=== PATIENT | female | born 1945 | race Caucasian/White ===

== ENCOUNTER 2017-08-25 09:00 | Outpatient (RCR) | payer MEDICARE, SELFPAY | END 2017-08-25 23:59 | LOC: PT 09:00 | PROVIDERS: Visit Provider Internal Medicine | DX: M54.2 Cervicalgia (principal); M25.511 Pain in right shoulder | CPT/HCPCS: G8984; G8985; G8986; 97010; 97035; 97110; 97140; 97161 ==

== ENCOUNTER 2017-09-02 10:00 | Outpatient (RCR) | payer MEDICARE, SELFPAY | END 2017-09-02 23:59 | LOC: PT 10:00 | PROVIDERS: Family Provider Internal Medicine; PCP Internal Medicine; Visit Provider Internal Medicine | DX: M54.2 Cervicalgia (principal); M25.511 Pain in right shoulder | CPT/HCPCS: 97010; 97035; 97110; 97140 ==

== ENCOUNTER → 2018-06-06 15:20 | Outpatient (CLI) | payer MEDICARE, SELFPAY ==
--- NOTE | 2018-06-06 15:22 | MM_ITS ---
MM Dig mamm BI DX w/CAD INDICATION: Bilateral breast pain ORDERING PHYSICIAN: Dom Gilman MD PATIENT AGE: 72 years COMPARISON: 06/30/2017 TECHNIQUE: Standard images are performed. The patient has old films which were not available at the time of review of the mammogram. Old films are made available on 06/14/2018. FINDINGS: There is dense fibroglandular tissue which decreases the sensitivity of mammography. There are bilateral benign-appearing calcifications. A cluster of benign-appearing nodules is noted within the upper outer aspect of the right breast. No malignant appearing mass or malignant appearing microcalcification is evident. Scattered areas of asymmetric density are noted but not significant changed consistent with asymmetric fibroglandular tissue. IMPRESSION: Benign findings, no evidence of malignancy BI-RADS Category: 2 Benign Finding(s) RECOMMENDED FOLLOW-UP: 1YR - 1 YEAR FOLLOW-UP The mammogram has an unremarkable appearance. However, would consider bilateral breast ultrasound in this patient with breast pain and dense breast tissue. (A letter has been sent to the patient regarding results of the study.)
== END ==
PROVIDERS: Family Provider Internal Medicine; PCP Internal Medicine; Visit Provider Obstetrics & Gynecology
DX: N64.4 Mastodynia (principal)
CPT/HCPCS: 77066

== ENCOUNTER → 2018-06-20 09:30 | Outpatient (CLI) | payer MEDICARE, SELFPAY ==
--- NOTE | 2018-06-20 09:31 | US_ITS ---
US breast RT complete, US breast LT complete Ordering Physician: Dom Gilman MD Patient Age: 72 years: Female HISTORY: ITS.REASON: BREAST PAIN bilateral TECHNIQUE: Ultrasound right and left breast including axillary survey cz US breast RT complete, US breast LT complete COMPARISON: Previous outside mammogram from [facility] Jun 2017; Also [facility] from June [facility], 2018 RIGHT BREAST ULTRASOUND: No areas of concern Moderate Dense breast tissue throughout for age. No cyst nor mass evident. Scattered small benign axillary lymph nodes observed. Largest 1.2 cm. LEFT BREAST ULTRASOUND: No areas of concern Heterogeneous dense breast. No cyst or solid nodule evident.. Axillary survey with no significant findings. Benign-appearing nodes largest 1.25 cm length IMPRESSION: . Today's ultrasound of right and left breast performed and show no areas of concern. No solid mass nor cyst. BI-RADS Category: 1 Negative RECOMMENDED FOLLOW-UP: 1YR - 1 YEAR FOLLOW-UP (A letter has been sent to the patient regarding results of the study.)
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
== END ==
PROVIDERS: Family Provider Internal Medicine; PCP Internal Medicine; Visit Provider Obstetrics & Gynecology
DX: N64.4 Mastodynia (principal)
CPT/HCPCS: 76641

== ENCOUNTER 2019-12-31 13:13 | Emergency (ER) | payer OTHER, SELFPAY ==
[2019-12-31 13:14] VITALS: BP 146/105; PULSE 108; RESP 18; TEMP 37.1; O2SAT 96; BMI 61.6
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
[2019-12-31 15:34] VITALS: BP 115/74; PULSE 78; RESP 16; TEMP 36.6; O2SAT 98
== END 2019-12-31 15:35 | disposition home or self-care (01) ==
PROVIDERS: Emergency Provider Family Medicine; PCP Emergency Medicine
DX: S60.211A Contusion of right wrist, initial encounter (principal); V43.52XA Car driver injured in collision with other type car in traffic accident, initial encounter; Y92.414 Local residential or business street as the place of occurrence of the external cause
CPT/HCPCS: 29125; 73110; 73130; 99283

== ENCOUNTER → 2020-01-18 10:10 | Outpatient (CLI) | payer MEDICARE, SELFPAY ==
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
== END ==
PROVIDERS: PCP Internal Medicine; Visit Provider Obstetrics & Gynecology
DX: Z12.31 Encounter for screening mammogram for malignant neoplasm of breast (principal)
CPT/HCPCS: 77063; 77067

== ENCOUNTER 2020-10-13 12:40 | Emergency (ER) | payer MEDICARE, SELFPAY ==
[2020-10-13 12:40] VITALS: BP 116/78; BP 135/102; PULSE 90; PULSE 97; RESP 18; TEMP 36.8; O2SAT 97; O2SAT 98; BMI 26.5
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
[2020-10-13 13:18] VITALS: BP 135/78; PULSE 75; O2SAT 95
[2020-10-13 13:30] VITALS: BP 142/91; PULSE 83; RESP 18; O2SAT 97
--- NOTE | 2020-10-13 14:06 | CT_ITS ---
PROCEDURE: CT CERVICAL SPINE WO CON CLINICAL INDICATION: fall from height History of mandible resection current patient unable to straighten hands for imaging COMPARISON: No exams were available for comparison TECHNIQUE: Axial images obtained with sagittal and coronal reformats. All CT scans at the facility use one or more dose reduction, viz: automated exposure control, ma/kV adjustment per patient size (including targeted exams where dose is matched to indication, i.e. head), or iterative reconstruction technique. Axial spiral CT scanning performed of the cervical spine beginning at the base of the skull and continuing to the upper T-spine. 3-D multiplanar reconstruction with 3-D manipulation of volumetric data set in image rendering was completed by the radiologist and/or technologist with the supervision of the radiologist on independent workstation. FINDINGS: There is diffuse osteopenia. There is no acute fracture. There are soft tissue changes from prior mandibular surgery and motion and artifact which does obscure soft tissue detail in the pharynx, hypopharynx and epiglottic fold regions these cannot be therefore assessed this study. There is scattered fluid in the left mastoid air cells suggesting mild left mastoiditis. Postsurgical changes are present in the left mandible. There is exaggerated kyphosis. There is normal lordosis of the cervical spine. There is minimal grade 1 retrolisthesis of C3 on C4. There are scattered degenerative changes. There is no spinal canal narrowing. There is narrowing of the left see 3 4 neural foramen and possibly the left C4-5 neural foramen. There is atherosclerotic calcification at the right greater than left carotid bifurcation. The lung apices are clear. IMPRESSION: Cervical spine intact with no fracture nor significant subluxation. Dictated by: Alla Merlos MD 10/13/2020 15:13 Alla Merlos MD in [place] 10/13/2020 15:13
--- NOTE | 2020-10-13 14:24 | PC.NURSE ---
notified rad of CT scan order, spoke with derrick
[2020-10-13 15:02] VITALS: BP 124/93; PULSE 85; RESP 18; O2SAT 95
[2020-10-13 15:30] VITALS: BP 124/93; PULSE 91; RESP 17; TEMP 36.7; O2SAT 98
--- NOTE | 2020-10-13 16:01 | PC.NURSE ---
Contacted pt brother to orange picker pt
[2020-10-13 16:03] VITALS: BP 149/98; PULSE 83; RESP 17; TEMP 36.8; O2SAT 95
== END 2020-10-13 16:05 | disposition home or self-care (01) ==
PROVIDERS: Emergency Provider Family Medicine; PCP Emergency Medicine
DX: S16.1XXA Strain of muscle, fascia and tendon at neck level, initial encounter (principal); V58.4XXA Person boarding or alighting a pick-up truck or van injured in noncollision transport accident, initial encounter; Y92.481 Parking lot as the place of occurrence of the external cause
CPT/HCPCS: 72125; 73000; 73030; 99283

== ENCOUNTER → 2021-03-17 14:47 | Outpatient (CLI) | payer MEDICARE, SELFPAY ==
--- NOTE | 2021-03-17 14:50 | MM_ITS ---
PROCEDURE: MM DIG SCREENING MAMM BI W/CAD Digital Breast Tomosynthesis Included CLINICAL INDICATION: SCREENING There is a history of breast cancer in the patient's sister diagnosed at age 50. COMPARISON: MG [facility] S[facility] MAMMO W/CAD BILAT from 06/30/2017 MG [facility] MM Dig mamm BI DX w/CAD from 06/06/2018 MG MM DIG SCREENING MAMM BI W/CAD from 01/18/2020 TECHNIQUE: Standard CC and MLO images and 3D Tomosynthesis was obtained. R2 CAD reviewed. FINDINGS: Moderate diffuse somewhat heterogenic fibroglandular densities are seen in the central portions of both breast findings are bilateral symmetrical. There are few scattered benign-appearing microcalcifications in both breast. CAD markings were reviewed and appear to be benign. There is a stable benign appearing nodular density upper-outer quadrant right breast. There is no suspicious lesion and no suspicious microcalcifications. IMPRESSION: Moderate heterogenic breast parenchyma with no suspicious lesions seen BI-RAD Category: 2 Benign Finding(s) FOLLOW-UP: 1YR 1 Year Follow-up (A letter has been sent to the patient regarding results of the study.) Dictated by: Dr. Dami Peres MD 03/18/2021 14:37 Dr. Dami Peres MD in [place] 03/18/2021 14:37
== END ==
PROVIDERS: PCP Internal Medicine; Visit Provider Internal Medicine
DX: Z12.31 Encounter for screening mammogram for malignant neoplasm of breast (principal)
CPT/HCPCS: 77063; 77067

== ENCOUNTER 2022-07-25 19:06 | Emergency (ER) | payer MEDICARE, SELFPAY ==
[2022-07-25 19:06] VITALS: BP 146/83; PULSE 80; RESP 18; TEMP 37.1; O2SAT 100; BMI 23.7
[2022-07-25 20:01] VITALS: BP 146/83; PULSE 79; O2SAT 97
--- NOTE | 2022-07-25 20:05 | XR_ITS ---
PROCEDURE INFORMATION: Exam: XR Left Knee Exam date and time: 07/25/2022 9:27 PM Age: 76 years old Clinical indication: Injury or trauma; Fall; Blunt trauma; Knee; Left TECHNIQUE: Imaging protocol: Radiologic exam of the Left knee. Views: 3 views. COMPARISON: No relevant prior studies available. FINDINGS: Bones/joints: Old healed fracture proximal diaphysis of the fibula. Small effusion without visualized acute fracture or subluxation. Mild osteoarthritis. Osteopenia. Soft tissues: Normal. Vasculature: Atherosclerosis. IMPRESSION: Small effusion without visualized acute fracture or subluxation.
--- NOTE | 2022-07-25 20:05 | XR_ITS ---
PROCEDURE INFORMATION: Exam: XR Right Elbow Exam date and time: 07/25/2022 9:27 PM Age: 76 years old Clinical indication: Injury or trauma; Fall; Blunt trauma (contusions or hematomas); Elbow; Right TECHNIQUE: Imaging protocol: Radiologic exam of the Right elbow. Views: 3 or more views. COMPARISON: CR XR SHOULDER RT MIN 2V 10/13/2020 1:23 PM FINDINGS: Bones/joints: Acute and comminuted transcondylar fractures of the distal humerus with 11 mm medial offset. Osteopenia and osteoarthritis. Soft tissues: Effusion. Soft tissue swelling. IMPRESSION: Acute and comminuted transcondylar fractures of the distal humerus with 11 mm medial offset.
--- NOTE | 2022-07-25 20:05 | XR_ITS ---
PROCEDURE INFORMATION: Exam: XR Right Knee Exam date and time: 07/25/2022 9:27 PM Age: 76 years old Clinical indication: Injury or trauma; Fall; Blunt trauma; Knee; Right TECHNIQUE: Imaging protocol: Radiologic exam of the Right knee. Views: 3 views. COMPARISON: No relevant prior studies available. FINDINGS: Bones/joints: Moderate osteoarthritis without fracture, subluxation or effusion. Soft tissues: Normal. Vasculature: Atherosclerosis. IMPRESSION: Moderate osteoarthritis without fracture, subluxation or effusion.
--- NOTE | 2022-07-25 20:05 | XR_ITS ---
PROCEDURE INFORMATION: Exam: XR Chest Exam date and time: 07/25/2022 9:27 PM Age: 76 years old Clinical indication: Injury or trauma; Fall; Blunt trauma (contusions or hematomas) TECHNIQUE: Imaging protocol: Radiologic exam of the chest. Views: 1 view. COMPARISON: CT CERVICAL SPINE WO CON 10/13/2020 2:38 PM FINDINGS: Lungs: No lobar consolidation, pleural effusion or pulmonary edema. Pleural spaces: No pneumothorax. Heart/Mediastinum: Unremarkable. No cardiomegaly. Bones/joints: Chronic deformity and advanced degenerative change right shoulder with moderate degenerative change elsewhere. No acute fracture line is seen. IMPRESSION: 1. No lobar consolidation, pleural effusion or pulmonary edema. 2. No pneumothorax. Chronic appearing fracture anterolateral right 5th rib. No pneumothorax.
--- NOTE | 2022-07-25 20:11 | XR_ITS ---
PROCEDURE INFORMATION: Exam: XR Pelvis Exam date and time: 07/25/2022 9:27 PM Age: 76 years old Clinical indication: Injury or trauma; Fall; Blunt trauma (contusions or hematomas); Bilateral; Pelvic region TECHNIQUE: Imaging protocol: Radiologic exam of the pelvis. Views: 1 or 2 view. COMPARISON: No relevant prior studies available. FINDINGS: Bones/joints: Osteopenia. Mild degenerative changes with no fracture or focal bony lesion seen. Nondisplaced fractures in osteopenic patients can be initially occult on xray. Follow up as clinically indicated. Soft tissues: Unremarkable. IMPRESSION: Mild degenerative changes with no fracture or focal bony lesion seen. Nondisplaced fractures in osteopenic patients can be initially occult on xray. Follow up as clinically indicated.
--- NOTE | 2022-07-25 20:15 | XR_ITS ---
PROCEDURE INFORMATION: Exam: XR Right Shoulder Exam date and time: 07/25/2022 9:27 PM Age: 76 years old Clinical indication: Injury or trauma; Fall; Blunt trauma (contusions or hematomas); Shoulder; Right TECHNIQUE: Imaging protocol: Radiologic exam of the Right shoulder. Views: 2 or more views. COMPARISON: CR XR SHOULDER RT MIN 2V 10/13/2020 1:23 PM FINDINGS: Bones/joints: Advanced degenerative change right glenohumeral joint without acute fracture or dislocation. Soft tissues: Normal. IMPRESSION: Advanced degenerative change right glenohumeral joint without acute fracture or dislocation.
--- NOTE | 2022-07-25 20:16 | HMH.EDFALL ---
Discharge Plan Disposition Patient Disposition: Home, Self-Care Condition: Good Prescriptions Prescriptions: No Action olive leaf extract 250 mg capsule PO glucosamine sulfate 500 mg capsule 500 mg PO BID grape seed extract 50 mg capsule 150 mg PO DAILY omega-3 fatty acids 1,000 mg capsule 1,000 mg PO DAILY Fish, Flax andBorage Oil(Prim) 400-400-200 mg capsule PO vitamin [id number] B1 1,000 mcg-100 mg/mL injection solution 1,000-100 mg/mL solution IM enalapril maleate 5 mg tablet 5 mg PO DAILY Referrals Follow up/Referrals: Darrin Liang [Primary Care Provider] - See instructions Clinical Impressions Clinical Impression: Transcondylar fracture of distal end of right humerus, Fall, Closed rib fracture, Contusion of knee Instructions Patient Instructions: DI for Elbow Fracture Discharge ED Provider: Jose Ramon Pop Fall HPI General Chief Complaint: Fall Stated Complaint: fall Time Seen by Provider: 07/25/22 20:16 Mode of Arrival: EMS Source of Information: Patient, Relative and Medical Record Limitations: No Limitations Description of Symptoms (Recalled from ER Triage Doc. by RN): pt states that she fell today up a ramp her sock got stuck and then she fell on her knees her right arm went under her and chin then nose and face all hit . the pt states that she has pain along the left arm, rib cage, midsternal pain near the right side. the pt states she cracked both knees there is notible bruising bilateral knees pt also has a bruise on the lip History of Present Illness HPI Narrative: trip fall tonight with acute injury to rt elbow - no loc and no neck or head pain - MD complaint: fall Onset (ago): hour(s) Fall from: standing Fall witnessed: no Place fall occurred: home Loss of consciousness: none Prolonged down time: no Context: tripped/slipped Location of injury - extremities: Right: elbow and Bilateral: knee Severity: moderate Associated symptoms (after fall): denies Related Data Home Medications Medication Instructions Recorded Confirmed fish oil 400 mg-flaxseed 400 cap PO 06/05/18 12/23/21 mg-prim,blk prop and effects designer,borag oils 200 mg capsule (Fish, Flax and Borage Oil ([place])) glucosamine sulfate 500 mg capsule 500 mg PO BID 06/05/18 12/23/21 grape seed extract 50 mg capsule 150 mg PO DAILY 06/05/18 12/23/21 olive leaf extract 250 mg capsule mg PO 06/05/18 12/23/21 omega-3 fatty acids 1,000 mg 1,000 mg PO DAILY 06/05/18 12/23/21 capsule vitamin [id number] B1 1,000 ml IM 06/05/18 12/23/21 mcg-100 mg/mL injection solution enalapril maleate 5 mg tablet 5 mg PO DAILY 12/23/21 12/23/21 Allergies Allergy/AdvReac Type Severity Reaction Status Date / Time Iodinated Contrast Media Allergy Severe causes Verified 12/23/21 14:46 [Iodinated Contrast Media - blood Oral and] pressure to drop acetaminophen [From Lortab] Allergy Intermediate Verified 12/23/21 14:46 amoxicillin Allergy Intermediate vaginitis Verified 12/23/21 14:46 atropine [From Lomotil] Allergy Intermediate Verified 12/23/21 14:46 dabigatran etexilate Allergy Intermediate Verified 12/23/21 14:46 [From Pradaxa] digoxin [From Lanoxin] Allergy Intermediate pt. said Verified 12/23/21 14:46 it made her hands swell and unusual heart rate diphenoxylate [From Lomotil] Allergy Intermediate Verified 12/23/21 14:46 hydrocodone [From Lortab] Allergy Intermediate Verified 12/23/21 14:46 iodine Allergy Intermediate Verified 12/23/21 14:46 ketorolac [From Toradol] Allergy Intermediate Verified 12/23/21 14:46 pentazocine [From Talwin] Allergy Intermediate Verified 12/23/21 14:46 prednisone Allergy Intermediate Verified 12/23/21 14:46 thallium-201 Allergy Intermediate Verified 12/23/21 14:46 aspirin [From Magdy Aspirin] Allergy Mild hives,weakness,and Verified 12/23/21 14:46 stomach upset chlorothiazide [From Diuril] Vega
--- NOTE | 2022-07-25 20:18 | CT_ITS ---
PROCEDURE INFORMATION: Exam: CT Chest Without Contrast; Diagnostic Exam date and time: 07/25/2022 9:37 PM Age: 76 years old Clinical indication: Injury or trauma; Fall; Blunt trauma (contusions or hematomas) TECHNIQUE: Imaging protocol: Diagnostic computed tomography of the chest without contrast. Radiation optimization: All CT scans at this facility use at least one of these dose optimization techniques: automated exposure control; mA and/or kV adjustment per patient size (includes targeted exams where dose is matched to clinical indication); or iterative reconstruction. COMPARISON: CT CERVICAL SPINE WO CON 10/13/2020 2:38 PM FINDINGS: Lungs: Limited atelectasis and pleuroparenchymal scarring. Para valvular and coronary artery calcifications. Mildly ectatic thoracic aorta. Pleural spaces: No lobar consolidation, pleural effusion or pulmonary edema. Heart: See Lungs finding. Lymph nodes: Unremarkable. No enlarged lymph nodes. Vasculature: See Lungs finding. Gallbladder and bile ducts: Cholelithiasis. Kidneys and ureters: Tiny right renal stone. Bones/joints: Acute appearing minimally offset fracture laterally of the right 10th rib. No pneumothorax. Soft tissues: Unremarkable. Other findings: No other acute disease seen on nonenhanced study. As Above. IMPRESSION: 1. No lobar consolidation, pleural effusion or pulmonary edema. 2. Acute appearing minimally offset fracture laterally of the right 10th rib. No pneumothorax. 3. No other acute disease seen on nonenhanced study. As Above.
[2022-07-25 20:31] VITALS: BP 147/89; PULSE 78; O2SAT 98
[2022-07-25 22:00] VITALS: BP 134/90; PULSE 79; O2SAT 95
[2022-07-25 22:31] VITALS: BP 136/87; PULSE 80; O2SAT 97
--- NOTE | 2022-07-25 22:39 | PC.NURSE ---
Rechecked pt condition. No needs or complaints voiced.
--- NOTE | 2022-07-25 22:48 | PC.NURSE ---
Dr. Niels vanegas
--- NOTE | 2022-07-25 22:49 | PC.NURSE ---
Dr. Pop speaking with Dr. Bowser
[2022-07-25 23:36] VITALS: BP 136/85; PULSE 80; RESP 18; TEMP 36.6; O2SAT 99
== END 2022-07-25 23:46 | disposition home or self-care (01) ==
PROVIDERS: Emergency Provider Emergency Medicine; PCP Internal Medicine
DX: S42.401A Unspecified fracture of lower end of right humerus, initial encounter for closed fracture (principal); S22.31XA Fracture of one rib, right side, initial encounter for closed fracture; S80.02XA Contusion of left knee, initial encounter; S80.01XA Contusion of right knee, initial encounter; S00.531A Contusion of lip, initial encounter; R01.1 Cardiac murmur, unspecified; Z88.0 Allergy status to penicillin; Z88.1 Allergy status to other antibiotic agents; Z88.3 Allergy status to other anti-infective agents; Z88.5 Allergy status to narcotic agent; Z88.6 Allergy status to analgesic agent; Z88.8 Allergy status to other drugs, medicaments and biological substances; Z91.041 Radiographic dye allergy status; Z79.899 Other long term (current) drug therapy; W01.0XXA Fall on same level from slipping, tripping and stumbling without subsequent striking against object, initial encounter
CPT/HCPCS: 29105; 71045; 71250; 72170; 73030; 73080; 73562; 99285

== ENCOUNTER → 2023-06-10 13:46 | Outpatient (CLI) | payer MEDICARE, SELFPAY ==
--- NOTE | 2023-06-10 13:54 | MM_ITS ---
PROCEDURE INFORMATION: Exam: MG Bilateral Diagnostic Breast Tomosynthesis Exam date and time: 06/10/2023 1:50 PM Age: 77 years old Clinical indication: Right medial breast pain; palpable thickness laterally TECHNIQUE: Imaging protocol: Bilateral Diagnostic tomosynthesis and 2D mammography including computer-aided detection (CAD) when performed. Unilateral or bilateral exam. COMPARISON: 1. MG MM DIG SCREENING MAMM BI W/CAD 03/17/2021 3:03 PM 2. MG MM DIG SCREENING MAMM BI W/CAD 01/18/2020 10:24 AM FINDINGS: MAMMOGRAPHY: The breasts are heterogeneously dense, which may obscure small masses. There is no stellate mass, architectural distortion or suspicious microcalcifications in either breast to suggest malignancy. A skin marker was placed over an area of palpable concern in the right upper outer quadrant. Spot compression views do not demonstrate any suspicious findings. No skin thickening or axillary adenopathy. IMPRESSION: Patient to return for complete right breast ultrasound for full evaluation of lateral palpable thickening and right medial breast pain. ASSESSMENT: BI-RADS Category 0: Incomplete- Need Additional Imaging Evaluation and/or Prior Mammograms for Comparison
== END ==
PROVIDERS: PCP Internal Medicine; Visit Provider Internal Medicine
DX: N64.4 Mastodynia (principal); Z12.31 Encounter for screening mammogram for malignant neoplasm of breast
CPT/HCPCS: 77062; 77066; G0279

== ENCOUNTER → 2023-07-12 14:56 | Outpatient (CLI) | payer MEDICARE, SELFPAY ==
--- NOTE | 2023-07-12 15:05 | US_ITS ---
PROCEDURE INFORMATION: Exam: US Right Breast, Complete Exam date and time: 07/12/2023 3:21 PM Age: 77 years old Clinical indication: PT only feels tender area at 200 now . Patient denies any palpable thickening or palpable discrete masses at the current time TECHNIQUE: Imaging protocol: Complete ultrasound of all four quadrants of the right breast and the retroareolar regions, including ultrasound of the axilla when performed. COMPARISON: BREASTRT US breast RT complete 06/20/2018 9:52 AM FINDINGS: Breast: Sonographic images of the right breast including the retroareolar region, all 4 quadrants and the axilla do not demonstrate any solid or cystic masses. No architectural distortion or acoustical shadowing. No skin thickening or axillary adenopathy. IMPRESSION: No sonographic evidence of malignancy. Annual mammographic screening is recommended unless otherwise clinically indicated. ASSESSMENT: Assessment: BI-RADS Category 1: Negative
== END ==
LOC: RAD 14:57
PROVIDERS: PCP Internal Medicine; Visit Provider Internal Medicine
DX: R92.8 Other abnormal and inconclusive findings on diagnostic imaging of breast (principal)
CPT/HCPCS: 76641

== ENCOUNTER 2023-11-13 15:16 | Emergency (ER) | payer MEDICARE, SELFPAY ==
[2023-11-13 15:37] VITALS: BP 153/93; PULSE 95; RESP 18; TEMP 36.5; O2SAT 98; BMI 23.4
--- NOTE | 2023-11-13 15:59 | HMH.EDGENADL ---
Discharge Plan Disposition Patient Disposition: Home, Self-Care Prescriptions Prescriptions: No Action olive leaf extract 250 mg capsule PO glucosamine sulfate 500 mg capsule 500 mg PO BID grape seed extract 50 mg capsule 150 mg PO DAILY omega-3 fatty acids 1,000 mg capsule 1,000 mg PO DAILY Fish, Flax andBorage Oil(Prim) 400-400-200 mg capsule PO vitamin [id number] B1 1,000-100 mg/mL solution IM enalapril maleate 5 mg tablet 5 mg PO DAILY Referrals Follow up/Referrals: Darrin Liang [Primary Care Provider] - See instructions Activity Restrictions/Add. Instructions Additional Instructions/Restrictions: The Dermabond or glue apparatus should fall off your finger within [address] any type of petroleum based ointment over this as it will breakdown the glue. Return with any spreading redness or pus coming from the wound or other concerns. Clinical Impressions Clinical Impression: Finger laceration Instructions Patient Instructions: DI for Laceration Repair Discharge ED Provider: Osman Elliott General Adult HPI General Chief complaint: Wound/Laceration Stated complaint: AO 11/13/23 1330 Laceration left ring finger Time Seen by Provider: 11/13/23 15:49 Mode of Arrival: Ambulatory Source of Information: Patient Limitations: No Limitations Description of Symptoms (Recalled from ER Triage Doc. by RN): pt states she was reaching for laundry when she cut her L ring finger on a piece of metal. pt is willing to take a TDAP. History of Present Illness HPI narrative: Patient is an 78-year-old female presenting today with a laceration to the ulnar aspect of the fourth finger on the left hand after putting her hand into her dryer and having a small piece of tissue that was a bolster lacerated. She is up-to-date on Tdap and was given to her in the last 2 years. Related Data Home Medications Medication Instructions Recorded Confirmed fish oil 400 mg-flaxseed 400 cap PO 06/05/18 12/23/21 mg-prim,blk visual and stock associate,borag oils 200 mg capsule (Fish, Flax and Borage Oil ([place])) glucosamine sulfate 500 mg capsule 500 mg PO BID 06/05/18 12/23/21 grape seed extract 50 mg capsule 150 mg PO DAILY 06/05/18 12/23/21 olive leaf extract 250 mg capsule mg PO 06/05/18 12/23/21 omega-3 fatty acids 1,000 mg 1,000 mg PO DAILY 06/05/18 12/23/21 capsule vitamin [id number] B1 1,000 ml IM 06/05/18 12/23/21 mcg-100 mg/mL injection solution enalapril maleate 5 mg tablet 5 mg PO DAILY 12/23/21 12/23/21 Allergies Allergy/AdvReac Type Severity Reaction Status Date / Time Iodinated Contrast Media Allergy Severe causes Verified 11/13/23 15:38 [Iodinated Contrast Media - blood Oral and] pressure to drop acetaminophen [From Lortab] Allergy Intermediate Verified 11/13/23 15:38 amoxicillin Allergy Intermediate vaginitis Verified 11/13/23 15:38 atropine [From Lomotil] Allergy Intermediate Verified 11/13/23 15:38 dabigatran etexilate Allergy Intermediate Verified 11/13/23 15:38 [From Pradaxa] digoxin [From Lanoxin] Allergy Intermediate pt. said Verified 11/13/23 15:38 it made her hands swell and unusual heart rate diphenoxylate [From Lomotil] Allergy Intermediate Verified 11/13/23 15:38 hydrocodone [From Lortab] Allergy Intermediate Verified 11/13/23 15:38 iodine Allergy Intermediate Verified 11/13/23 15:38 ketorolac [From Toradol] Allergy Intermediate Verified 11/13/23 15:38 pentazocine [From Talwin] Allergy Intermediate Verified 11/13/23 15:38 prednisone Allergy Intermediate Verified 11/13/23 15:38 thallium-201 Allergy Intermediate Verified 11/13/23 15:38 aspirin [From Magdy Aspirin] Allergy Mild hives,weakness,and Verified 11/13/23 15:38 stomach upset chlorothiazide [From Diuril] Allergy Mild Verified 11/13/23 15:38 codeine Allergy Mild Verified 11/13/23 15:38 cortisone Allergy Mild Verified 11/13/23 15:38 digitalin Allergy Mild Verified 11/13/23 15:38 mold Allergy Mild Verified 11/13/23 15:38 propoxyphene [From Darvon] Allergy Mild Verified 11/13/23 15:38 NSAIDS (Non-Steroidal Allergy itching,dizziness,rash, Verified 11/13/23 15:38 Anti-Inflamma and headache tetracycline AdvReac Intermediate vaginitis Verified 11/13/23 15:38 darvcette Allergy Mild Uncoded 01/15/20 09:26 [facility] Disclaimer: The information contained in this section may have been updated after the patient was seen, as this information can be updated by other users. Social History Smoking Status: Never smoker alcohol intake: never substance use type: denies use current occupational status: retired Travel in the last 8 weeks: None ROS Obtained: Yes All systems reviewed & no additional complaints except as documented Physical Exam General General appearance: alert and in no apparent distress Respiratory Respiratory exam: Present normal lung sounds bilaterally Cardiovascular Cardiovascular exam: Present regular rate and normal rhythm Extremities Exam Extremities exam: Present other (On the left hand on the volar aspect there is a 0.5 cm tissue avulsion/laceration that is hemostatic on the ulnar aspect of the volar fat pad of the fourth digit on the left hand) Neurological Exam Neurological exam: Present alert and oriented X3 Medical Decision Making Louie Inquiry Pt receiving controlled substance: No Vital Signs: 11/13/23 15:37 Temperature 97.7 F Temperature Source Oral Pulse Rate [Left] 95 H Respiratory Rate 18 Blood Pressure [Right Arm] 153/93 H Blood Pressure Mean [Right Arm] 113 Blood Pressure Source [Right Arm] Automatic Cuff Blood Pressure Position [Right Arm] Sitting 02 Sat by Pulse Oximetry 98 Oxygen Delivery Method Room Air Medical Decision Narrative: Injury as above neurovascular intact very superficial laceration/tissue avulsion no wound edges to reapproximate Dermabond was placed over top of this to provide a barrier as well as to close the wound return precautions emphasized wound management discussed patient was discharged in stable condition. Procedures Laceration Laceration 1: Site: finger Side (If applicable): left Size (cm): 0.5 Description: flap Depth: simple, single layer Pre-repair: wound explored and irrigated extensively Skin layer closed with: Dermabond Critical Care Critical Care Time Critical Care Time: No
[2023-11-13 16:00] VITALS: BP 136/101; PULSE 82; RESP 20; O2SAT 95
[2023-11-13 16:12] VITALS: BP 136/101; PULSE 82; RESP 16; TEMP 36.7
== END 2023-11-13 16:14 | disposition home or self-care (01) ==
PROVIDERS: Emergency Provider Student in an Organized Health Care Education/Training Program; PCP Internal Medicine
DX: S61.215A Laceration without foreign body of left ring finger without damage to nail, initial encounter (principal); W26.8XXA Contact with other sharp object(s), not elsewhere classified, initial encounter
CPT/HCPCS: 12001; 99282

== ENCOUNTER 2024-05-04 14:42 | Outpatient (CLI) | payer MEDICARE, SELFPAY ==
--- NOTE | 2024-05-04 14:46 | MM_ITS ---
PROCEDURE INFORMATION: Exam: MG Bilateral Diagnostic Breast Tomosynthesis Exam date and time: 05/04/2024 2:31 PM Age: 78 years old Clinical indication: Right breast pain TECHNIQUE: Imaging protocol: Bilateral Diagnostic tomosynthesis and 2D mammography including computer-aided detection (CAD) when performed. Unilateral or bilateral exam. COMPARISON: 1. MG MM DIG MAMM BI DX W/CAD 06/10/2023 1:50 PM 2. MG MM DIG SCREENING MAMM BI W/CAD 03/17/2021 3:03 PM FINDINGS: MAMMOGRAPHY: Breast composition: The breasts are heterogeneously dense, which may obscure small masses. Breast mammogram findings: There is no stellate mass, architectural distortion or suspicious microcalcifications in either breast to suggest malignancy. No skin thickening or axillary adenopathy. IMPRESSION: Patient to return for targeted right breast ultrasound for full evaluation of the patient's complaint of right breast pain ASSESSMENT: BI-RADS Category 0: Incomplete- Need Additional Imaging Evaluation
== END 2024-05-04 23:59 | disposition home or self-care (01) ==
LOC: RAD 14:43
PROVIDERS: PCP Internal Medicine; Visit Provider Internal Medicine
DX: R92.8 Other abnormal and inconclusive findings on diagnostic imaging of breast (principal)
CPT/HCPCS: 77062; 77066; G0279

== ENCOUNTER 2024-05-15 10:06 | Outpatient (CLI) | payer MEDICARE, SELFPAY ==
--- NOTE | 2024-05-15 10:16 | US_ITS ---
PROCEDURE INFORMATION: Exam: US Right Breast, Complete Exam date and time: 05/15/2024 10:18 AM Age: 78 years old Clinical indication: Right breast pain. TECHNIQUE: Imaging protocol: Complete ultrasound of all four quadrants of the right breast and the retroareolar regions, including ultrasound of the axilla when performed. COMPARISON: US BREAST RT COMPLETE 07/12/2023 3:21 PM FINDINGS: ULTRASOUND: Breast ultrasound findings: Right breast ultrasound: No cysts, masses, regions of shadowing or distortion are seen. No abnormal lymph nodes in the axilla. No sonographic abnormality in the region of pain in the upper-outer quadrant 10 o'clock IMPRESSION: No sonographic finding to explain the patient's breast pain. Recommend clinical follow-up. ASSESSMENT: BI-RADS Category 1: Negative.
== END 2024-05-15 23:59 | disposition home or self-care (01) ==
LOC: RAD 10:07
PROVIDERS: PCP Internal Medicine; Visit Provider Internal Medicine
DX: R92.8 Other abnormal and inconclusive findings on diagnostic imaging of breast (principal); N64.4 Mastodynia
CPT/HCPCS: 76641

== ENCOUNTER 2024-06-08 08:02 | Outpatient (CLI) | payer MEDICARE, SELFPAY ==
--- NOTE | 2024-06-08 08:11 | CT_ITS ---
FINAL REPORT TECHNIQUE: Axial CT images were performed from the lung apices through the upper abdomen. Coronal and sagittal reformats were submitted. This study was performed with techniques to keep radiation doses as low as reasonably achievable (ALARA). Individualized dose reduction techniques using automated exposure control or adjustment of mA and/or kV according to the patient's size were employed. CLINICAL HISTORY: PLEURAL EFFUSION COMPARISON: 07/26/2022 FINDINGS: There is no axillary adenopathy. There is no hilar or mediastinal mass or adenopathy. Heart size is normal. There is ectasia of the ascending aorta, 41 mm in diameter, stable. Moderate to severe coronary artery calcifications are once again identified. There is no pericardial, pleural effusion, or pleural thickening. No suspicious infiltrate or nodule is identified on lung window images. Mild scarring is present. There is calcified granuloma present in the right middle lobe. Degenerative changes present in the thoracic spine and the shoulders bilaterally. Note is made of gallstones in the gallbladder. 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 Moderate to severe coronary artery calcifications are once again identified. Gallstones are once again identified in the gallbladder. No evidence of pleural effusion or pleural thickening is identified. Mild pulmonary scarring is present. Reviewed, Interpreted and Dictated by Henry Sinclair III, MD Transcribed by Tere Diaz Authenticated and [facility]
== END 2024-06-08 23:59 | disposition home or self-care (01) ==
LOC: RAD 08:05
PROVIDERS: PCP Internal Medicine; Visit Provider Internal Medicine
DX: J90 Pleural effusion, not elsewhere classified (principal)
CPT/HCPCS: 71250

== ENCOUNTER 2025-03-30 10:22 | Inpatient (IN) | payer MEDICARE, SELFPAY ==
[2025-03-30] VITALS (16 sets, daily range): BP systolic 129–170; BP diastolic 70–120; PULSE 65–109; RESP 14–20; TEMP 36.9–37.1; O2SAT 14–100; BMI 27.3; BMI 24.0
[2025-03-30 10:38] LABS: Microscopic, Urine URINE MICROSCOPIC (MICROSCOPIC)
--- NOTE | 2025-03-30 10:38 | ECG_ITS ---
APPROVED REPORT Exam: Resting ECG HR:84 bpm ECG Measurements Heart Rate 84 AXES ID 166 P 68 QRSd 110 QRS 78 QT 373 T 64 QTc 414 Conclusion SINUS RHYTHM NORMAL ECG UNCONFIRMED REPORT Normal sinus rhythm. No ST elevation or depression. QTc normal at 414 Electronically signed by : LUDA WEIR, 04/01/2025 14:21:28
--- NOTE | 2025-03-30 10:43 | CT_ITS ---
PROCEDURE INFORMATION: Exam: CT Abdomen And Pelvis With Contrast Exam date and time: 03/30/2025 11:19 AM Age: 79 years old Clinical indication: Abdominal pain; Additional info: No bm, abdominal pain TECHNIQUE: Imaging protocol: Computed tomography of the abdomen and pelvis with contrast. Radiation optimization: All CT scans at this facility use at least one of these dose optimization techniques: automated exposure control; mA and/or kV adjustment per patient size (includes targeted exams where dose is matched to clinical indication); or iterative reconstruction. Contrast material: ISOVUE; Contrast volume: 75 ml; Contrast route: IV; COMPARISON: CR XR PELVIS 1-2V 07/25/2022 9:27 PM FINDINGS: Heart: There is calcification of the aortic valve annulus. There is calcification of the mitral valve annulus. Coronary arteries: Coronary artery calcifications may indicate coronary artery disease. Liver: Normal. No mass. Gallbladder and biliary ducts: Gallstones in the gallbladder Pancreas: Pancreatic atrophy Spleen: Normal. No splenomegaly. Adrenal glands: Normal. No mass. Kidneys and ureters: Normal. No hydronephrosis. Stomach and bowel: Multiple loops of fluid-filled small bowel with inflammatory changes in the adjacent fat. This may represent ileus or developing small bowel obstruction.. Bowel wall thickening in the ileum may represent enteritis. Diverticulosis of the entire colon No diverticulitis.. Bowel wall thickening in the ileum may represent enteritis. Appendix: No evidence of appendicitis. Intraperitoneal space: Mild amount of free fluid in the pelvis Vasculature: Unremarkable. No abdominal aortic aneurysm. Lymph nodes: Unremarkable. No enlarged lymph nodes. Urinary bladder: Unremarkable as visualized. Reproductive: Unremarkable as visualized. Bones/joints: Unremarkable. No acute fracture. Soft tissues: Unremarkable. IMPRESSION: 1. Multiple loops of fluid-filled small bowel with inflammatory changes in the adjacent fat. This may represent ileus or developing small bowel obstruction.. 2. Bowel wall thickening in the ileum may represent enteritis. 3. Diverticulosis of the entire colon No diverticulitis.. 4. Bowel wall thickening in the ileum may represent enteritis.
--- OUTSIDE RECORDS SUMMARY | 2025-03-30 10:43 | XMS_ITS | Clinical Summary ---
Author Organization [facility] Address [address] [place], [place] [address] Care Team Providers Care Buyer Liaison Name Role Phone Darrin Liang MD Primary Care Provider Allergies Active Allergy Reactions Criticality Noted Date Comments Albuterol 08/09/2022 Makes her heart race and beat to fast Aspirin Rash Low 07/27/2022 Sulfamethoxazole-Trimet hoprim Diarrhea,Nausea And Vomiting 08/09/2022 Codeine Other (See Comments) Medium 07/27/2022 Hallucinations Corticosteroids 08/09/2022 Causes heart rate to speed Cortisone Palpitations Low 07/27/2022 Cyclobenzaprine Other (See Comments) Medium 07/27/2022 Dizziness Propoxyphene Nausea And Vomiting 08/09/2022 Digitalis Palpitations Low 07/27/2022 Propranolol 08/09/2022 States had the effect on her heart rate Hydrocodone-Acetaminoph en 08/09/2022 States she's everything green Ibuprofen 08/09/2022 Affects heart rate Naproxen 08/09/2022 Makes senile Other Diarrhea,Nausea Only 08/09/2022 Most antibiotics that belong to mycin family Dabigatran Etexilate Mesylate 08/09/2022 Omeprazole Nausea Only 08/09/2022 Pentazocine 08/09/2022 States causes me to see things and my balance Tramadol 08/09/2022 Makes my heart kick in Medications Cyanocobalamin 2000 MCG TB CR Take 1 tablet by mouth daily. 09/02/2015 Active enalapril (VASOTEC) 5 MG tablet 06/09/2022 Active [place] Extract 150 MG CAPS 09/02/2015 Active Ubiquinol 100 MG CAPS Take by mouth 2 (two) times daily. 09/02/2015 Active Grape Seed Extract 100 MG CAPS Take by mouth daily. 09/02/2015 Active Glucosamine-David droit-Vit C-Mn (GLUCOSAMINE 1500 COMPLEX) CAPS Take by mouth. Active [place] 3-6-9 Fatty Acids (OMEGA 3-6-9 COMPLEX) CAPS Take by mouth. Active Multiple Vitamins-Mineral s (COMPLETE MULTIVITAMIN/MIN ERAL PO) Take by mouth. Active Cholecalciferol (VITAMIN D) 25 MCG (1000 UNIT) tablet Take 1,000 Units by mouth daily. Active Lecithin 1200 MG CAPS Take by mouth. Active Collagen Hydrolysate POWD Use. Act olya acetaminophen (TYLENOL) 500 MG tablet Take 500 mg by mouth as needed for Pain. Active Active Problems Problem Noted Date Diagnosed Date Elbow fracture, right, sequela 08/09/2022 Right supracondylar humerus fracture 08/03/2022 Overview (08/03/2022): Added automatically from request for surgery [id number] Immunizations Immunization Administration Dates Next Due COVID-19 MODERNA MONOVALENT AGES 12 AND OLDER 07/29/2021,10/08/2020,09/10/2020 Td (ages 7Y and greater), 5 Lf Tetanus Toxoid, Preservative Free, Adsorbed 06/04/2005 Social History Tobacco Use Types Packs/Day Years Used Date Smoking Tobacco: Never Smokeless Tobacco: Never Tobacco Cessation:Counseling Given: Not Answered Alcohol Use Standard Drinks/Week Comments Never 0 (1 standard drink = 0.6 oz pur e alcohol) Comments Unknown Sex and Gender Information Value Date Recorded Sex Assigned at Not on file Legal Sex Female 10:23 AM EST Gender Identity Not on file Sexual Orientation Not on file Last Filed Vital Signs Vital Sign Reading Time Taken Comments Blood Pressure 145/92 12/28/2022 2:20 PM EDT Pulse 88 12/28/2022 2:20 PM EDT Temperature 37.1 C (98.7 F) 12/28/2022 2:20 PM EDT Respiratory Rate 18 12/28/2022 2:20 PM EDT Oxygen Saturation 98% 12/28/2022 2:20 PM EDT Inhaled Oxygen Concentration - - Weight 60.8 kg (134 lb 0.6 oz) 01/20/2023 11:19 AM EDT Height 154.9 cm (5' 0.98 ) 01/20/2023 11:19 AM E DT Body Mass Index 25.34 01/20/2023 11:19 AM EDT Plan of Treatment Health Maintenance Due Date Last Done Comments Pneumococcal Vaccines >50 yo (1 of 1 - PCV) 1993 Shingles (Shingrix) (1 of 2) 1993 Tdap/Td Vaccine >11 yo (1 - Tdap) 06/05/2005 005 Osteoporosis Screening 2008 Annual SDOH Screening 08/29/2024 Medicare Advantage Annual We llness Visit (AWV) 08/29/2024 PAF (Practitioner Assessment Form) 08/29/2024 Influenza Vaccine (#1) 2025 Haemophilus Influenzae Type B (Hib) Vaccine Aged Out No longer eligible b ased on patient's age to complete this topic Hepatitis A (HepA) Vaccine Aged Out N o longer eligible based on patient's age to complete this topic Hepatitis B (HepB) Vaccine Aged Out N o longer eligible based on patient's age to complete this topic Meningococcal ACWY Aged Out No longer eligible based on patient's age to complete this topic Polio (IPV) Aged Out No longer eligi ble based on patient's age to complete this topic Rotavirus (RV) Vaccine Aged Out No lo nger eligible based on patient's age to complete this topic Medical Devices Implanted Type Area Zipper Slide Attacher Device Identifier Shelf Expiration Date Model / Serial / Lot Plate Post Va 4h Rt [id number] - [id number] Implanted:Qty: 1 on 08/09/2022 by Megan Rajan MD at [facility] Plates Right: Theron Adylitica [id number] / / Description:From vendor monroy Plate Medial [id number] - [id number] Implanted:Qty: 1 on 08/09/2022 by Megan Rajan MD at [facility] Plates Right: Theron Adylitica [id number] / / Screw Locking 2.7x18 [id number] - [id number] Implanted:Qty: 2 on 08/09/2022 by Megan Rajan MD at [facility] Screws, Bolts and Washers Right: Arm Adylitica L T D [id number] / / Description:From vendor monroy Screw Ermias Stp 3.5x20 [id number] - [id number] Implanted:Qty: 2 on 08/09/2022 by Megan Rajan MD at [facility] Screws, Bolts and Washers Right: Arm Adylitica L T D [id number] / / Description:From vendor monroy Screw Locking 2.7x22 [id number] - [id number] Implanted:Qty: 1 on 08/09/2022 by Megan Rajan MD at [facility] Screws, Bolts and Washers Right: Arm SYNTHES L T D [id number] / / Description:From vendor monroy Screw Locking 2.7x60 [id number] - [id number] Implanted:Qty: 1 on 08/09/2022 by Megan Rajan MD at [facility] Screws, Bolts and Washers Right: Arm SYNTHES [id number] / / Description:From vendor monroy Screw Locking 2.7x50 [id number] - [id number] Implanted:Qty: 1 on 08/09/2022 by Megan Rajan MD at [facility] Screws, Bolts and Washers Right: Arm SYNTHES [id number] / / Description:From vendor monroy Screw Locking 2.7x32 [id number] - [id number] Implanted:Qty: 1 on 08/09/2022 by Megan Rajan MD at [facility] Screws, Bolts and Washers Right: Arm SYNTHES [id number] / / Description:From vendor monroy Screw Locking 2.7x24 [id number] - [id number] Implanted:Qty: 1 on 08/09/2022 by Megan Rajan MD at [facility] Screws, Bolts and Washers Right: Arm SYNTHES L T D [id number] / / Description:From vendor monroy Screw Locking 2.7x20 [id number] - [id number] Implanted:Qty: 1 on 08/09/2022 by Megan Rajan MD at [facility] Screws, Bolts and Washers Right: Arm SYNTHES L T D [id number] / / Description:From vendor monroy Screw Locking 2.7x12 [id number] - [id number] Implanted:Qty: 1 on 08/09/2022 by Megan Rajan MD at [facility] Screws, Bolts and Washers Right: Arm Adylitica L T D [id number] / / Description:From vendor monroy Screw Ermias Stp 3.5x22 [id number] - [id number] Implanted:Qty: 1 on 08/09/2022 by Megan Rajan MD at [facility] Screws, Bolts and Washers Right: Arm EnSight Media D [id number] / / Description:From vendor monroy Explanted Type Area Zipper Slide Attacher Device Identifier Shelf Expiration Date Model / Serial / Lot Screw Ermias Stp 3.5x20 [id number] - [id number] Explanted:Qty: 1 on 08/09/2022 by Megan Rajan MD at [facility] Screws, Bolts and Washers Right: Arm [employer]ight Media D / / Description:From vendor monroy Screw Locking 2.7x22 [id number] - [id number] Explanted:Qty: 1 on 08/09/2022 by Megan Rajan MD at [facility] Screws, Bolts and Washers Right: Arm [employer] Media D [id number] / / Description:From vendor monroy Screw Locking 2.7x16 [id number] - [id number] Explanted:Qty: 1 on 08/09/2022 at [facility] Screws, Bolts and Washers Right: Arm Kivra T D [id number] / / Description:From vendor monroy Wire K 1.6x150 [id number] - [id number] Explanted:Qty: 1 on 08/09/2022 by Megan Rajan MD at [facility] Wires Right: Arm Adylitica [id number] / / Description:Used as supply Insurance [employer] MEDICARE REPLACEMENT Advance Directives * Full Code (Latest Code Status on File) Date Activated Date Inactivated Comments 08/09/2022 7:27 PM 08/11/2022 3:01 PM Care Teams Buyer Liaison Relationship Specialty Start Date End Date Darrin Liang MD [address] [facility] [address] [place] [address] PCP - General Internal Medicine 07/27/22
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
--- OUTSIDE RECORDS SUMMARY | 2025-03-30 10:43 | XMS_ITS | Clinical Summary ---
[facility] Organization [facility] Address [address] [place] [address] Care Team Providers Care Public Safety Police Name Role Phone Darrin Liang DO Primary Care Provider Social History Tobacco Use Types Packs/Day Years Used Date Smoking Tobacco: Never Assessed Abuse Screen Answer Date Recorded Unsafe at Home or Work/School Not on file Feels Threatened by Someone? Not on file 04/2023 Does Anyone Keep You from Co ntacting Others or Doint Things Outside the Home? Not on file 06/06/2023 Physical Sign of Abuse Present Not on file 1 Housing Stability Answer Date Recorded Current Living Arrangements Not on file 04/2023 Potentially Unsafe Housing Conditions Not on natty e 06/06/2023 Family and Community Support Answer Samuel e Recorded Help with Day-to-Day Activities Not on file 06/06/2023 Lonely or Isolated Not on file 06/06/2023 Employment Answer Date Recorded Do you want help finding or keeping work or a salina b? Not on file 06/06/2023 Disabilities Answer Date Recorded Concentrating, Remembering, or Making Decisions Difficulty Not on file 06/06/2023 Doing Errands Independently Difficulty Not on fi le 06/06/2023 Education Answer Date Recorded Help with school or training? Not on file Preferred Language Not on file 06/06/2023 Comments No Sex and Gender Information Value Date Recorded Sex Assigned at Not on file Legal Sex Female 10:51 AM EDT Gender Identity Not on file Sexual Orientation Not on file Last Filed Vital Signs Vital Sign Reading Time Taken Comments Blood Pressure 158/95 01/05/2021 2:55 PM EDT Pulse 94 01/05/2021 2:55 PM EDT Temperature 37 C (98.6 F) 01/05/2021 2:55 PM EDT Respiratory Rate 18 01/05/2021 2:55 PM EDT Oxygen Saturation 98% 01/05/2021 2:55 PM EDT Inhaled Oxygen Concentration - - Weight 66.2 kg (146 lb) 01/05/2021 2:55 PM EDT Height 154.9 cm (5' 1 ) 01/05/2021 2:55 PM EDT Body Mass Index 27.59 01/05/2021 2:55 PM EDT Plan of Treatment Health Maintenance Due Date Last Done Comments Pneumococcal Vaccine 50+ (1 of 1 - PCV) 1993 ZOSTER VACCINE (1 of 2) 1993 TDAP/TD VACCINES (2 - Tdap) 06/04/2015 06/04/2005 DXA SCAN 05/13/2016 05/13/2014 RSV Vaccine - Adults (1 - 1- dose 75+ series) 2018 ANNUAL PHYSICAL 09/06/2022 COVID-19 Vaccine ( season) 2024 07/29/2021, 10/08/2020, 09/10/2020 INFLUENZA VACCINE 05/29/2025 Procedures Procedure Name Priority Date/Time Associated Diagnosis Comments DEXA BONE DENSITY AXIAL Routine 05/13/2014 10:18 AM EDT from Last 3 Months or Most Recently Relevant to Health Maintenance Results * DEXA BONE DENSITY AXIAL (05/13/2014 10:18 AM EDT) Anatomical Region Laterality Modality Wrist, Hip, L-spine N/A Radiographic Imaging 05/13/2014 10:1 8 AM EDT Narrative 05/14/2014 9:12 AM EDT DUAL-ENERGY X-RAY ABSORPTIOMETRY (DXA) INDICATION: 68-year-old female for bone mineral densitometry COMPARISON: 02/05/2011 PROCEDURE: A DXA scan was performed using a Hologic densitometer. The lumbar spine L1-L4 was evaluated as well as the left total hip. The T-score compares the patient's bone mineral density with the peak bone mass of young normal patients. According to criteria established by the World Health Organization, patients with T-scores between 1.0 and 2.5 standard deviations BELOW the mean are osteopenic (low bone mass). Patients with T-scores EQUAL TO OR GREATER than 2.5 standard deviations below the mean are osteoporotic. The Z-score compares the patient bone mineral density with age and sex matched peers. According to the International Society for Clinical Densitometry's 2007 consensus conference: In women prior to menopause and men less than age 50, Z-scores, not T-scores are preferred. A Z-score of -2.0 or lower is defined as below the expected range for age and a Z-score above -2.0 is within the expected range for age. The WHO diagnostic criteria may be applied in women in the menopausal transition. Osteoporosis cannot be diagosed in men under age 50 on the basis of BMD alone. TECHNICAL QUALITY: The quality of the exam is good RESULTS: Lumber Spine: The BMD measured in the L1-L4 region is 0.701 g/cm2. The average T-score is -3.1. The Z-score is -1.0. Total Hip: The BMD measured at the left total proximal femur is 0.651 g/cm2. The T-score is -2.4. The Z-score is -0.8 Femoral Neck: The BMD measured at the left femoral neck is 0.469 g/cm2. The T-score is -3.4. The Z-score is -1.6. 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 Osteoporosis in the lumbar spine All the treatment decisions require clinical judgment and consideration of individual patient factors, including patient preferences, co-morbidities, previous drug use, risk factors not captured in the FRAX model (frailty, falls, vitamin D deficiency, increased bone turnover, interval significant decline in bone density) and possible under or over estimation of fracture risk by FRAX. Approaches to reduce osteoporosis related fracture risk include optimizing calcium and vitamin D status, appropriate weight bearing exercises and fall-prevention measurements. The National Osteoporosis Foundation recommends (http://www.nof.org/hcp/practice/twbkmdqz-xaq-wshwqlga-guidelines/clinic ians-guide) that FDA-approved medical therapies be considered in postmenopaual women and men aged equal or greater than 50 years with : a) hip or vertebral (clinical or morphometric) fracture; b) T-score of -2.5 or less at the spine or hip; c) Ten-year fracture probablity by FRAX of greater than 3% for hip fracture of greater than 20% for major osteoporotic fracture. Secondary causes of bone loss should be evaluated if clinically indicated since the etiology of low BMD cannot be determined by BMD measurement alone. FOLLOWUP: Consider repeating the study in 2-3 years to reassess the patient's status or sooner if there is some new clinical indication. INTERVAL CHANGE: There has been no significant interval change in the bone mineral density lumbar spine or left hip since the previous exam.. At this facility, the least signifcant change in the BMD at the lumbar spine with 95% confidence is 0.743233 gm/cm2 and and 0.935031 g/cm2 at the left hip. Reading Radiologist- JOAN JENNINGS Releasing Radiologist- JOAN JENNINGS Released Date Time- 05/14/14912 Information Systems Planner- Lauren Darrin Liang DO G DXA ORDERABLES Fin al Result from Last 3 Months or Most Recently Relevant to Health Maintenance Insurance [address] [place] [id number] [facility] MEDICARE ADVANTAGE [facility] [employer] [employer] Care Teams Public Safety Police Relationship Specialty Start Date End Date Darrin Liang DO [address] [place] [address] PCP - General 07/21/15
[2025-03-30 10:47] LABS: Bilirubin,Urine Negative (Negative); Color,Urine YELLOW (Yellow); Glucose,Urine (UA) Negative (Negative); Ketones,Urine Negative (Negative); Leukocyte Esterase,Urine Negative (Negative); PH,Urine 6.0 (5.0-8.5); Protein,Urine TRACE (Negative); Specific Gravity, Urine 1.025 (1.005-1.030); Urobilinogen,Urine 0.2 EU/dl (0.2)
--- NOTE | 2025-03-30 10:57 | ED_ITS ---
Discharge Plan Disposition Patient Disposition: Admitted Condition: Good Clinical Impressions Clinical Impression: Bowel obstruction, Acute hyponatremia Discharge ED Provider: González Chaudhari Adult HPI General Chief complaint: Abdominal Pain Stated complaint: severe abd pain/no bowel movement Time Seen by Provider: 03/30/25 10:30 Mode of Arrival: Ambulatory Source of Information: Patient Description of Symptoms (Recalled from ER Triage Doc. by RN): patient states she has had low abdominal pain since this am that is pressure. she has not had bowel movement this am and has had trouble urianting. she vomitted 4 times this am that was bile History of Present Illness HPI narrative: Chitra Awad is an 79F with a past medical history of colonic polyps that have been removed, status post appendectomy, Ttqne-Novmbejhn-Njtqc syndrome who presents to the emergency department for complaints of abdominal pain and no bowel movement this morning. Patient states that she normally has a bowel movement every single morning. She states that her last bowel movement was last night and was normal. She states that this morning, she did not produce a bowel movement and has had pain throughout her entire abdomen. She states that she is also not been able to urinate. She has not passed any gas. She denies any history of bowel obstructions. She states that she is followed by forestry aid at [facility], Dr. Jeovanny Vargas, who she called this morning and told her to come to the emergency department for CT scans and MRIs to look at the pancreatic duct. She denies any issues with her pancreas in the past but notes that her brother has had pancreatic cancer. She did report that she vomited 4 times this morning. Related Data Home Medications ?Medication ?Instructions ?Recorded ?Confirmed fish oil 400 mg-flaxseed 400 cap PO 06/05/18 12/23/21 mg-prim,blk employment adjudicator,borag oils 200 mg capsule (Fish, Flax and Borage Oil ([place])) glucosamine sulfate 500 mg capsule 500 mg PO BID 06/0512/23/21 grape seed extract 50 mg capsule 150 mg PO DAILY 06/0512/23/21 olive leaf extract 250 mg capsule mg PO 06/05/1812/23 omega-3 fatty acids 1,000 mg 1,000 mg PO DAILY 8 12/23/21 capsule vitamin [id number] B1 1,000 ml IM 06/05/18 12/23/21 mcg-100 mg/mL injection solution enalapril maleate 5 mg tablet 5 mg PO DAILY 12/23/21 0 12/23/21 Allergies Allergy/AdvReac Type Severity Reaction Status Date / Time Iodinated Contrast Media Allergy Severe causes Verified 11/13/23 15:38 (Iodinated Contrast Media - blood Oral and) pressure to drop acetaminophen (From Lortab) Allergy Intermediate Verified 11/13/23 15:38 amoxicillin Allergy Intermediate vaginitis Verified 11/13/23 15:38 atropine (From Lomotil) Allergy Intermediate Verified 11/13/23 15:38 dabigatran etexilate (From Allergy Intermediate Verified 11/13/23 15:38 Pradaxa) digoxin (From Lanoxin) Allergy Intermediate pt. said Verified 11/13/23 15:38 it made her hands swell and unusual heart rate diphenoxylate (From Lomotil) Allergy Intermediate Verified 11/13/23 15:38 hydrocodone (From Lortab) Allergy Intermediate Verified 11/13/23 15:38 iodine Allergy Intermediate Verified 11/13/23 15:38 ketorolac (From Toradol) Allergy Intermediate Verified 11/13/23 15:38 pentazocine (From Talwin) Allergy Intermediate Verified 11/13/23 15:38 prednisone Allergy Intermediate Verified 11/13/23 15:38 thallium-201 Allergy Intermediate Verified 11/13/23 15:38 aspirin (From Magdy Aspirin) Allergy Mild hives,weakness,and Verified 11/13/23 15:38 stomach upset chlorothiazide (From Diuril) Allergy Mild Verified 11/13/23 15:38 codeine Allergy Mild Verified 11/13/23 15:38 cortisone Allergy Mild Verified 11/13/23 15:38 digitalin Allergy Mild Verified 11/13/23 15:38 mold Allergy Mild Verified 11/13/23 15:38 propoxyphene (From Darvon) Allergy Mild Verified 11/13/23 15:38 NSAIDS (Non-Steroidal Allergy itching,dizziness,rash, Verified 11/13/23 15:38 Anti-Inflamma and headache tetracycline AdvReac Intermediate vaginitis Verified 11/13/23 15:38 darvcette Allergy Mild Uncoded 01/15/20 09:26 PFSH PFS Disclaimer: The information contained in this section may have been updated after the patient was seen, as this information can be updated by other users. Medical History (Updated 03/30/25 @ 18:45 by González Chaudhari MD) HTN (hypertension) Lcgyd-Cixbtupzu-Guhdc (WPW) syndrome Family History (Updated 03/30/25 @ 15:09 by Shannon Albert RN) Other Family history of cancer Social History (Updated 03/30/25 @ 15:12 by Shannon Albert RN) Smoking Status: Never smoker alcohol intake: never substance use type: denies use current occupational status: retired Travel in the last 8 weeks?: None Have you lived/traveled outside [place] in past 30 days?: No Contact w/someone who lives/traveled outside US past 30 days?: No Exposure to someone with infectious disease in past 14 days?: No Do you have a fever (greater than 100.4 F or 38 C)?: No Have you tested positive for COVID-19?: No Exposed to someone with COVID-19 in past 14 days?: No Do you have a sore throat?: No Do you have a cough?: No Do you have any weakness?: No Are you experiencing any nausea/vomitting?: Yes Do you have any diarrhea?: No Are you experiencing any unusual bleeding?: No Do you have any muscle aches/pain?: No Do you have any abdominal pain?: No Are you experiencing loss of taste or smell?: No Other Medical History Have you received the Flu Vaccine for this season: No Have you received the Pneumonia Vaccine: Yes ROS Obtained: Yes Systems reviewed as appropriate & no additional complaints except as documented Physical Exam General General appearance: alert and in no apparent distress Head Head exam: atraumatic Eye Eye exam: Present normal appearance ENT ENT exam: Present normal external ear exam Neck Neck exam: Present full ROM Chest Chest inspection: Present symmetric chest wall rise Respiratory Respiratory exam: Present normal lung sounds bilaterally; Absent respiratory distress, wheezes or stridor Cardiovascular Cardiovascular exam: Present regular rate and normal rhythm Abdominal Exam Abdominal exam: Present soft and tenderness (generalized); Absent distention, guarding, rebound or rigidity Extremities Exam Extremities exam: Present normal inspection Back Exam Back exam: Present normal inspection Neurological Exam Neurological exam: Present alert and oriented X3 Psychiatric Psychiatric exam: Present normal affect Skin Skin exam: Present warm and dry Medical Decision Making Medical Records Screening: Per USPSTF and CDC recommendations, given the prevalence of disease in our region, it is our hospital?s policy to screen for HIV and viral Hepatitis for all patients aged 18 and over and those with ongoing risk factors. Louie Inquiry Pt receiving controlled substance: No Vital Signs: 03/30/25 10:31 03/30/25 10:39 03/30/25 11:00 Temperature 98.4 F Temperature Source Oral Pulse Rate 65 83 Pulse Rate [Right Radial] 85 Respiratory Rate 18 Blood Pressure 170/110 H 166/101 H Blood Pressure [Right Arm] 170/110 H Blood Pressure Mean Blood Pressure Mean [Right Arm] 130 Blood Pressure Source [Right Arm] Automatic Cuff Blood Pressure Position [Right Arm] Supine 02 Sat by Pulse Oximetry 92 L 96 95 Oxygen Delivery Method Room Air 03/30/25 11:46 03/30/25 11:53 03/30/25 12:00 Temperature Temperature Source Pulse Rate 87 83 84 Pulse Rate [Right Radial] Respiratory Rate 16 16 Blood Pressure 145/98 H 168/120 H 156/98 H Blood Pressure [Right Arm] Blood Pressure Mean 115 Blood Pressure Mean [Right Arm] Blood Pressure Source [Right Arm] Blood Pressure Position [Right Arm] 02 Sat by Pulse Oximetry 98 96 97 Oxygen Delivery Method Room Air 03/30/25 12:30 03/30/25 12:38 03/30/25 13:00 Temperature Temperature Source Pulse Rate 83 81 84 Pulse Rate [Right Radial] Respiratory Rate 18 Blood Pressure 147/119 H 147/119 H 142/92 H Blood Pressure [Right Arm] Blood Pressure Mean Blood Pressure Mean [Right Arm] Blood Pressure Source [Right Arm] Blood Pressure Position [Right Arm] 02 Sat by Pulse Oximetry 96 98 95 Oxygen Delivery Method 03/30/25 13:23 03/30/25 13:30 03/30/25 13:46 Temperature Temperature Source Pulse Rate 106 H 102 H 104 H Pulse Rate [Right Radial] Respiratory Rate Blood Pressure 164/99 H 159/97 H 152/118 H Blood Pressure [Right Arm] Blood Pressure Mean Blood Pressure Mean [Right Arm] Blood Pressure Source [Right Arm] Blood Pressure Position [Right Arm] 02 Sat by Pulse Oximetry 95 96 100 Oxygen Delivery Method 03/30/25 14:00 03/30/25 14:21 03/30/25 14:52 Temperature 98.7 F Temperature Source Pulse Rate 99 H 109 H Pulse Rate [Right Radial] Respiratory Rate 16 Blood Pressure 129/98 H 146/120 H Blood Pressure [Right Arm] Blood Pressure Mean Blood Pressure Mean [Right Arm] Blood Pressure Source [Right Arm] Blood Pressure Position [Right Arm] 02 Sat by Pulse Oximetry 94 L Oxygen Delivery Method Room Air Room Air Lab Data Lab Results 03/30/25 10:16: WBC 13.8 H, RBC 4.75, Hgb 13.7, Hct 41.0, MCV 86.3, MCH 28.8, MCHC 33.4, RDW 13.5, Plt Count 237, MPV 10.3, Neut % (Auto) 87.5 H, Lymph % (Auto) 8.0 L, [place] % (Auto) 3.8, Eos % (Auto) 0.1, Baso % (Auto) 0.2, Neut # (Auto) 12.1 H, Lymph # (Auto) 1.1, [place] # (Auto) 0.5, Eos # (Auto) 0.0, Baso # (Auto) 0.0, Sodium 130 L, Potassium 4.1, Chloride 94 L, Carbon Dioxide 28, Anion Gap 12.1, BUN 15, Creatinine 0.60, Estimated Creat Clear 44, Estimated GFR 96, Est GFR ( Amer) 116, Glucose 126 H, Calcium 10.1, Total Bilirubin 0.4, AST 32, ALT 15, Alkaline Phosphatase 130 H, Total Protein 8.5 H, Albumin 4.2, G lobulin 4.3 H, Albumin/Globulin Ratio 1.0 L, Lipase 89, HCV Ab ISABELA w/Rflx PCR Qn Negative, HIV Ag/Ab Combo Qual Negative 03/30/25 10:34: Urine Color Yellow, Urine Appearance Clear, Urine pH 6.0, Ur Specific [place] 1.025, Urine Protein Trace, Urine Glucose (UA) Negative, Urine Ketones Negative, Urine Blood Negative, Urine Nitrate Negative, Urine Bilirubin Negative, Urine Urobilinogen 0.2, Ur Leukocyte Esterase Negative, Urine RBC Occasional, Urine WBC Occasional, Ur Squamous Epith Cells 3-5, Urine Bacteria Trace, Fine Granular Casts Occasional 03/30/25 11:00: VBG pH 7.40, VBG pCO2 41.3, VBG pO2 43.4 H, VBG HCO3 25.2, VBG Total CO2 26.5, VBG O2 Saturation 80.1 H, VBG Base Excess 0.5, VBG Lactic Acid 1.5 03/30/25 10:16 03/30/25 10:16 Orders (Tests/Meds): ED MEDICATIONS Generic Name Dose Route Start Last Admin Trade Name Lj PRN Reason Stop Dose Admin Heparin Sodium (Porcine) 5,000 unit 03/30/25 21:00 Heparin Sodium 5,000 Unit/Ml Vial SUBCUT 04/29/25 20:59 BID LAUREANO Sodium Chloride 1,000 mls @ 50 mls/hr 03/30/25 14:45 03/30/25 15:28 Sod Chlor 0.9% 1000ml Bag IV 04/29/25 14:44 50 mls/hr .Q20H LAUREANO Administration Morphine Sulfate 2 mg 03/30/25 14:40 Morphine 2mg/Ml Syringe IV 04/29/25 14:39 Q2HP PRN Severe Pain (7-10) Ondansetron HCl 4 mg 03/30/25 14:40 Ondansetron 4mg/2ml Vial IV 04/29/25 14:39 Q8HP PRN Nausea Sodium Chloride 10 ml 03/30/25 11:30 03/30/25 11:31 Sodium Chloride 0.9% 10ml Syr (Rad Only) IV 04/29/25 11:29 10 ml NEEDED PRN Administration Maintain IV Site Sodium Chloride 10 ml 03/30/25 14:40 Sodium Chloride 0.9% 10ml Flush Syringe IV 04/29/25 14:39 NEEDED PRN Maintain IV Site Discontinued Medications Generic Name Dose Route Start Last Admin Trade Name Lj PRN Reason Stop Dose Admin Iopamidol 75 ml 03/30/25 11:30 03/30/25 11:31 Iopamidol-370 (76%);100ml Bottle IV 03/30/25 11:31 75 ml ONCE ONE Administration Morphine Sulfate 4 mg 03/30/25 14:19 03/30/25 14:38 Morphine 4mg/Ml Syringe IV 03/30/25 14:20 4 mg ONCE ONE Administration Ondansetron HCl 4 mg 03/30/25 10:59 03/30/25 11:11 Ondansetron 4mg/2ml Vial IV 03/30/25 11:00 4 mg ONCE ONE Administration ORDERS Category Date Time Status CT abdomen pelvis w con Stat Cat Scan 03/30/25 10:43 Completed KUB (single view) [XR KUB] Stat Exams 03/30/25 13:25 Completed CBC w/Auto Diff [Complete Blood Count Auto Diff] Stat Lab 03/30/25 10:16 Completed CMP [Comprehensive Metabolic Panel] Stat Lab 03/30/25 10:16 Completed HIV Combo Stat Lab 03/30/25 10:16 Completed Hepatitis C Ab Qual. W/ RFX Stat Lab 03/30/25 10:16 Completed Lipase Stat Lab 03/30/25 10:16 Completed UA [Urinalysis and Microscopic] Stat Lab 03/30/25 10:34 Completed VBG [Venous Blood Gas] Stat RT 03/30/25 11:00 Completed Medical Decision Narrative: Chitra Awad is an 79F with a past medical history of colonic polyps that have been removed, status post appendectomy, Kcdit-Vbcxikpuq-Dhwls syndrome who presents to the emergency department for complaints of abdominal pain and no bowel movement this morning. Patient states that she normally has a bowel movement every single morning. She states that her last bowel movement was last night and was normal. She states that this morning, she did not produce a bowel movement and has had pain throughout her entire abdomen. She states that she is also not been able to urinate. She has not passed any gas. She denies any history of bowel obstructions. She states that she is followed by forestry aid at [facility], Dr. Jeovanny Vargas, who she called this morning and told her to come to the emergency department for CT scans and MRIs to look at the pancreatic duct. She denies any issues with her pancreas in the past but notes that her brother has had pancreatic cancer. She did report that she vomited 4 times this morning. On arrival, patient is hemodynamically stable, in no acute respiratory distress , maintaining appropriate oxygen saturations. Afebrile. Physical exam, as stated above, revealed an overall well-appearing female in no distress. Cardiopulmonary exam is unremarkable. Her abdomen is soft and nondistended, however there is generalized tenderness without guarding, rigidity or rebound. The remainder of her physical exam is grossly unremarkable. Differential diagnosis includes, but is not limited to: Small bowel obstruction, constipation, fecal impaction, ileus, acute pancreatitis, malignancy, diverticulitis, among others. The most morbid conditions were considered and workup was based on these. Workup in the emergency department included: CBC with differential, lipase, CMP, urinalysis, EKG, VBG with lactate, CT abdomen/pelvis IV contrast (it is listed that patient has a contrast allergy and that it causes her to lower her blood pressure, however when asked patient about this, she does not recall what the allergy is and states that she has had contrasted scans in the past). Throughout her ED course, patient was treated with 4 mg of IV Zofran as well as 4 mg of IV morphine (patient states that she has had morphine before and has tolerated it in the past) EKG was interpreted by me personally. There is some artifact, but no ST elevation or depression is appreciated. QTc normal at 4-14. Normal sinus rhythm. VT interval is normal at 166. Patient does have a mild delta wave, most notably in V2, V3 Laboratory workup shows mild leukocytosis of 13.8, no anemia, platelets within normal range, VBG with normal lactate of 1.5. pH normal at 7.4. Mild hyponatremia of 130, potassium normal at 4.1. Liver enzymes within normal limits. Bilirubin normal. Lipase normal at 89. No evidence of urinary tract infection or hematuria. CT imaging was interpreted by me personally. There are loops of small bowel that are fluid-filled and some inflammatory changes to the fat surrounding these areas. There is concern that this could represent small bowel obstruction. Per radiology, these areas of loops of fluid-filled small bowel and inflammatory changes of adjacent fat could be community health program representative of an ileus or developing small bowel obstruction. There is also bowel wall thickening in the ileum that may represent enteritis. Diverticulosis without evidence of diverticulitis. Given these findings, I discussed patient's case with Dr. Rondon with general surgery. It is felt that her symptomatology could be community health program representative of developing small bowel obstruction, however could also be an ileus. He recommended placing NG tube placement given that she is having vomiting with this. He will evaluate the patient tomorrow and if there is a need for surgery, she will likely undergo surgery tomorrow. per Dr. 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 Patient was agreeable to admission at this time and agreeable to NG tube placement. An NG tube was placed and KUB showed that the sideport was in the esophagus, so it was advanced 5cm and repeat KUB showed appropriate placement. I then discussed the patient's case with Dr. Betts for admission and he agreed to admit the patient for admission. Critical Care Critical Care Time Critical Care Time: Yes Attestation: On 03/30/25, the high probability of a clinically significant, sudden or life threatening deterioration of the following system(s) required my full and direct attention, intervention and personal management. The time I documented below is in addition to time spent performing reported procedures but includes the following listed in this critical care notation. Total Time Total Critical Care Time: 35
[2025-03-30 11:03] LABS: Hematocrit 41.0 % (37.0-47.0); Hemoglobin 13.7 g/dL (12.2-16.2); Immature Granulocytes % 0.4 %; Mean Corpuscular HGB Conc 33.4 g/dL (31.8-35.4); Mean Corpuscular Hemoglobin 28.8 pg (27.0-31.2); Mean Corpuscular Volume 86.3 fl (81-99); Nucleated Red Blood Cells % 0 %; Platelet Count 237 K/mm3 (142-424); Red Blood Count 4.75 M/mm3 (4.20-5.40); Red Cell Distribution Width-SD 42.6 fL; White Blood Count 13.8 K/mm3 (4.8-10.8)
[2025-03-30 11:06] LABS: Bacteria,Urine Trace /lpf; RBC,Urine Occasional #/hpf (0-3); WBC,Urine Occasional #/hpf (0-3)
[2025-03-30 11:08] LABS: Albumin Level 4.2 g/dl (3.5-5.0); Chloride 94 mmol/L (98-107); Potassium 4.1 mmoL/L (3.5-5.1); Sodium 130 mmol/L (136-145)
[2025-03-30 11:10] LABS: Alanine Aminotransferase 15 U/L (12-78); Anion Gap 12.1 mEq/L (5-15); Aspartate Amino Transferase 32 U/L (14-36); Blood Urea Nitrogen 15 mg/dl (7-17); Carbon Dioxide 28 mmol/L (22.0-30.0); Creatinine Clearance Estimated 44 mL/min (50-200); Creatinine,Serum 0.60 mg/dl (0.52-1.04); Estimated Glomerular Filt Rate 96 ml/min (>60); GFR (African American) 116 ML/MIN (>60)
[2025-03-30 11:11] LABS: Albumin/Globulin Ratio 1.0 (1.1-1.8); Alkaline Phosphatase 130 U/L (38-126); Bilirubin,Total 0.4 mg/dl (0.2-1.3); Calcium 10.1 mg/dl (8.4-10.2); Globulin 4.3 g/dL (1.3-3.2); Glucose 126 mg/dl (74-100); Lipase 89 U/L (23-300); Total Protein,Serum 8.5 g/dl (6.3-8.2)
[2025-03-30] MEDS: ONDANSETRON 4MG/2ML VIAL 4 MG IV (11:11)
[2025-03-30 11:13] LABS: Lactate Venous 1.5 mmol/L (0.4-2.0); VBG HCO3 25.2 mmol/L (23-30); VBG PCO2 41.3 mmol/L (35-51); VBG PH 7.40 mmol/L (7.31-7.41); VBG PO2 43.4 mmol/L (28-40)
--- NOTE | 2025-03-30 11:24 | HMH.ITSTN ---
Per Dr. Chaudhari, he is aware of contrast allergy. Does not want to pre medicate and wants to proceed with scan.
[2025-03-30] MEDS: SODIUM CHLORIDE 0.9% 10ML SYR (RAD ONLY) 10 ML IV (11:31)
[2025-03-30] MEDS: IOPAMIDOL-370 (76%);100ML BOTTLE 75 ML IV (11:31)
[2025-03-30 12:11] LABS: Hepatitis C Ab Qual. W/ RFX NEGATIVE (Negative)
--- NOTE | 2025-03-30 12:54 | PC.NURSE ---
paged for surgery
--- NOTE | 2025-03-30 13:25 | XR_ITS ---
PROCEDURE INFORMATION: Exam: XR Abdomen Exam date and time: 03/30/2025 1:31 PM Age: 79 years old Clinical indication: Device placement; Gi device; Nasogastric tube; Additional info: Ngt placement TECHNIQUE: Imaging protocol: Radiologic exam of the abdomen. Views: Frontal supine view of the abdomen. 1 View. COMPARISON: CT ABDOMEN PELVIS W CON 03/30/2025 11:19 AM FINDINGS: Tubes, catheters and devices: Nasogastric tube with tip just distal to the gastroesophageal junction. Side hole appears to be within small hiatal hernia. Gastrointestinal tract: Nonspecific bowel gas pattern, without gaseous distension. Organs: Contrast within the renal collecting systems. Bones/joints: Unremarkable. IMPRESSION: Nasogastric tube with tip just distal to the gastroesophageal junction. Side hole appears to be within small hiatal hernia.
--- NOTE | 2025-03-30 13:37 | PC.NURSE ---
spoke with house about bed assignment for pt accepted by [facility] for [facility]
--- NOTE | 2025-03-30 13:49 | PC.NURSE ---
advanced ng to 60 per md request
--- NOTE | 2025-03-30 14:24 | XR_ITS ---
PROCEDURE INFORMATION: Exam: XR Abdomen Exam date and time: 03/30/2025 2:27 PM Age: 79 years old Clinical indication: Device placement; Gi device; Nasogastric tube; Additional info: Ngt advancement placement TECHNIQUE: Imaging protocol: Radiologic exam of the abdomen. Views: Frontal supine view of the abdomen. 1 View. COMPARISON: CR XR KUB 03/30/2025 1:31 PM FINDINGS: Tubes, catheters and devices: Interval advancement of the nasogastric tube, with tip in the distal gastric body, directed right laterally. Gastrointestinal tract: Normal. No bowel dilation. Bones/joints: Unremarkable. IMPRESSION: Interval advancement of the nasogastric tube, with tip in the distal gastric body, directed right laterally.
--- NOTE | 2025-03-30 14:28 | PC.NURSE ---
Report called to ELPIDIO Abbasi
[2025-03-30] MEDS: MORPHINE 4MG/ML SYRINGE 4 MG IV (14:38)
[2025-03-30] MEDS: 0.9 % SODIUM CHLORIDE 1000ML 1,000 ML 50 ML IV (15:28)
--- NOTE | 2025-03-30 16:01 | EXP.HP ---
History of Present Illness *Admission Date: 03/30/25 *Reason for visit:: abdominal pain *History of present illness: Patient is a 78-year-old female with past medical history of hypertension, colonic polyps who presents to the hospital for abdominal pain and constipation. According to the patient she is not having bowel movements for the past 2 days and not passing gas. She has abdominal pain throughout her abdomen. Patient called her GI office at [facility] and was informed to come to the emergency department for further evaluation. Patient otherwise denied fever chills chest pain. On further evaluation patient was found to have small bowel obstruction. [facility] Disclaimer: The information contained in this section may have been updated after the patient was seen, as this information can be updated by other users. Medical History (Updated 03/30/25 @ 18:45 by González Chaudhari MD) HTN (hypertension) Hetid-Dupmkiydh-Oinvk (WPW) syndrome Family History (Updated 03/30/25 @ 15:09 by Shannon Albert RN) Other Family history of cancer Social History (Updated 03/30/25 @ 15:12 by Shannon Albert RN) Smoking Status: Never smoker alcohol intake: never substance use type: denies use current occupational status: retired Travel in the last 8 weeks?: None Have you lived/traveled outside US in past 30 days?: No Contact w/someone who lives/traveled outside US past 30 days?: No Exposure to someone with infectious disease in past 14 days?: No Do you have a fever (greater than 100.4 F or 38 C)?: No Have you tested positive for COVID-19?: No Exposed to someone with COVID-19 in past 14 days?: No Do you have a sore throat?: No Do you have a cough?: No Do you have any weakness?: No Are you experiencing any nausea/vomitting?: Yes Do you have any diarrhea?: No Are you experiencing any unusual bleeding?: No Do you have any muscle aches/pain?: No Do you have any abdominal pain?: No Are you experiencing loss of taste or smell?: No Other Medical History Have you received the Flu Vaccine for this season: Yes Have you received the Pneumonia Vaccine: Yes Review of Systems Review of Systems Review of systems:: pertinent systems reviewed and negative unless documented below Meds Home Medications and Allergies Home Medications ?Medication ?Instructions ?Recorded ?Confirmed ?Type fish oil 400 mg-flaxseed 400 cap PO 06/05/18 12/23/21 History mg-prim,blk waste management engineer,borag oils 200 mg capsule (Fish, Flax and Borage Oil ([place])) glucosamine sulfate 500 mg capsule 500 mg PO BID 06/05/18 12/23/21 History grape seed extract 50 mg capsule 150 mg PO DAILY 06/05/18 12/23/21 History olive leaf extract 250 mg capsule mg PO 06/05/18 12/23/21 History omega-3 fatty acids 1,000 mg 1,000 mg PO DAILY 06/05/18 12/23/21 History capsule vitamin [id number] B1 1,000 ml IM 06/05/18 12/23/21 History mcg-100 mg/mL injection solution enalapril maleate 5 mg tablet 5 mg PO DAILY 12/23/21 12/23/21 History New Prescriptions to Start Prescriptions: Allergies Allergy/AdvReac Type Severity Reaction Status Date / Time Iodinated Contrast Media Allergy Severe causes Verified 11/13/23 15:38 (Iodinated Contrast Media - blood Oral and) pressure to drop acetaminophen (From Lortab) Allergy Intermediate Verified 11/13/23 15:38 amoxicillin Allergy Intermediate vaginitis Verified 11/13/23 15:38 atropine (From Lomotil) Allergy Intermediate Verified 11/13/23 15:38 dabigatran etexilate (From Allergy Intermediate Verified 11/13/23 15:38 Pradaxa) digoxin (From Lanoxin) Allergy Intermediate pt. said Verified 11/13/23 15:38 it made her hands swell and unusual heart rate diphenoxylate (From Lomotil) Allergy Intermediate Verified 11/13/23 15:38 hydrocodone (From Lortab) Allergy Intermediate Verified 11/13/23 15:38 iodine Allergy Intermediate Verified 11/13/23 15:38 ketorolac (From Toradol) Allergy Intermediate Verified 11/13/23 15:38 pentazocine (From Talwin) Allergy Intermediate Verified 11/13/23 15:38 prednisone Allergy Intermediate Verified 11/13/23 15:38 thallium-201 Allergy Intermediate Verified 11/13/23 15:38 aspirin (From Magdy Aspirin) Allergy Mild hives,weakness,and Verified 11/13/23 15:38 stomach upset chlorothiazide (From Diuril) Allergy Mild Verified 11/13/23 15:38 codeine Allergy Mild Verified 11/13/23 15:38 cortisone Allergy Mild Verified 11/13/23 15:38 digitalin Allergy Mild Verified 11/13/23 15:38 mold Allergy Mild Verified 11/13/23 15:38 propoxyphene (From Darvon) Allergy Mild Verified 11/13/23 15:38 NSAIDS (Non-Steroidal Allergy itching,dizziness,rash, Verified 11/13/23 15:38 Anti-Inflamma and headache tetracycline AdvReac Intermediate vaginitis Verified 11/13/23 15:38 darvcette Allergy Mild Uncoded 01/15/20 09:26 Exam Data for Last 24 hours Vital signs and Labs for Last 24 Hours: Temp Pulse Resp BP Pulse Ox O2 Del Method 98.6 F 105 H 20 146/120 H 94 L Room Air 03/30/25 15:01 03/30/25 15:01 03/30/25 15:01 03/30/25 15:01 03/30/25 15:01 03/30/25 15:01 Laboratory Results - last 24 hr 03/30/25 10:16: WBC 13.8 H, RBC 4.75, Hgb 13.7, Hct 41.0, MCV 86.3, MCH 28.8, MCHC 33.4, RDW 13.5, Plt Count 237, MPV 10.3, Neut % (Auto) 87.5 H, Lymph % (Auto) 8.0 L, [place] % (Auto) 3.8, Eos % (Auto) 0.1, Baso % (Auto) 0.2, Neut # (Auto) 12.1 H, Lymph # (Auto) 1.1, [place] # (Auto) 0.5, Eos # (Auto) 0.0, Baso # (Auto) 0.0, Sodium 130 L, Potassium 4.1, Chloride 94 L, Carbon Dioxide 28, Anion Gap 12.1, BUN 15, Creatinine 0.60, Estimated Creat Clear 44, Estimated GFR 96, Est GFR ( Amer) 116, Glucose 126 H, Calcium 10.1, Total Bilirubin 0.4, AST 32, ALT 15, Alkaline Phosphatase 130 H, Total Protein 8.5 H, Albumin 4.2, Globulin 4.3 H, Albumin/Globulin Ratio 1.0 L, Lipase 89, HCV Ab ISABELA w/Rflx PCR Qn Negative, HIV Ag/Ab Combo Qual Negative 03/30/25 10:34: Urine Color Yellow, Urine Appearance Clear, Urine pH 6.0, Ur Specific [place] 1.025, Urine Protein Trace, Urine Glucose (UA) Negative, Urine Ketones Negative, Urine Blood Negative, Urine Nitrate Negative, Urine Bilirubin Negative, Urine Urobilinogen 0.2, Ur Leukocyte Esterase Negative, Urine RBC Occasional, Urine WBC Occasional, Ur Squamous Epith Cells 3-5, Urine Bacteria Trace, Fine Granular Casts Occasional 03/30/25 11:00: VBG pH 7.40, VBG pCO2 41.3, VBG pO2 43.4 H, VBG HCO3 25.2, VBG Total CO2 26.5, VBG O2 Saturation 80.1 H, VBG Base Excess 0.5, VBG Lactic Acid 1.5 I & O for Last 24 hours: Intake & Output 03/27/25 03/28/25 03/29/25 03/30/25 23:59 23:59 23:59 23:59 Output Total 400 / 400 Balance -400 / -400 Weight 57.833 kg Constitutional Constitutional: no acute distress *Routine HEENT Exam Head: Present normocephalic Eye: Present EOMI and PERRL ENT: Present mucous membranes moist *Routine Neck Exam Neck: Present supple; Absent lymphadenopathy *Routine Respiratory Exam Respiratory: Present CTA bilaterally *Routine Cardiovascular Exam Cardiovascular: Present RRR *Routine Abdominal Exam Abdominal: Present soft, tenderness and distended *Routine Rectal Exam Rectal:: deferred *Routine Genitalia Exam Genitalia:: deferred *Routine Extremities Exam Extremities: Absent cyanosis, clubbing or edema *Routine Skin Exam Skin: Present warm; Absent rash *Routine Neurological Exam Neurological: Present alert and oriented X3 Assessment and Plan *Assessment and plan (1) Bowel obstruction: Status: Acute Category: Medical Code(s): K56.609 - Unspecified intestinal obstruction, unspecified as to partial versus complete obstruction (2) Fall: Status: Acute Category: Medical Code(s): W19.XXXA - Unspecified fall, initial encounter (3) HTN (hypertension): Status: Acute Category: Medical Code(s): I10 - Essential (primary) hypertension Plan Patient is a 78-year-old female with past medical history of hypertension, colonic polyps who presents to the hospital for abdominal pain and constipation. According to the patient she is not having bowel movements for the past 2 days and not passing gas. She has abdominal pain throughout her abdomen. Patient called her GI office at [facility] and was informed to come to the emergency department for further evaluation. Patient otherwise denied fever chills chest pain. On further evaluation patient was found to have small bowel obstruction. Assessment and plan Abdominal pain likely secondary to small bowel obstruction Enteritis CT abdomen pelvis performed in the ED did show multiple loops of fluid-filled small bowel, suspected ileus or small bowel obstruction N.p.o. for now IV fluids Consult general surgery Pain control Monitor and replace electrolytes Start IV Zosyn Leukocytosis suspect due to reactive or enteritis Continue Zosyn Monitor Chronic medical conditions Grbyc-Nkocbzaxv-Mbcha syndrome Hypertension Resume home medications when able to take p.o. DVT prophylaxis-subcutaneous heparin
[2025-03-30] MEDS: PIPERACILLIN/TAZO 3.375 GM in 0.9 % SODIUM CHLORIDE 50 ML IV (19:59)
[2025-03-30] MEDS: HEPARIN SODIUM 5,000 UNIT/ML VIAL 5000 UNIT SUBCUT (21:30)
[2025-03-31] MEDS: PIPERACILLIN/TAZO 3.375 GM in 0.9 % SODIUM CHLORIDE 50 ML IV ×4 (01:56→18:31)
[2025-03-31 04:00] VITALS: BP 128/64; PULSE 98; RESP 12; TEMP 37.1; O2SAT 93; BMI 25.0
--- NOTE | 2025-03-31 06:26 | PC.NURSE ---
v/s, ox4, RA. Pt c/o uncomfortableness of the NG tube. Charge nurse notified, provider notified. Pt educated on NG tube. Pt NPO. Plan of care ongoing.
[2025-03-31 07:35] LABS: Hematocrit 34.2 % (37.0-47.0); Immature Granulocytes % 0.2 %; Mean Corpuscular HGB Conc 33.3 g/dL (31.8-35.4); Mean Corpuscular Hemoglobin 28.8 pg (27.0-31.2); Mean Corpuscular Volume 86.4 fl (81-99); Nucleated Red Blood Cells % 0 %; Platelet Count 198 K/mm3 (142-424); Red Blood Count 3.96 M/mm3 (4.20-5.40); Red Cell Distribution Width-SD 43.6 fL; White Blood Count 9.1 K/mm3 (4.8-10.8)
[2025-03-31 07:42] LABS: Chloride 102 mmol/L (98-107); Sodium 130 mmol/L (136-145)
[2025-03-31 07:43] LABS: Potassium 3.9 mmoL/L (3.5-5.1)
[2025-03-31 07:45] LABS: Blood Urea Nitrogen 15 mg/dl (7-17); Creatinine Clearance Estimated 42 mL/min (50-200); Creatinine,Serum 0.80 mg/dl (0.52-1.04); Estimated Glomerular Filt Rate 69 ml/min (>60); GFR (African American) 83 ML/MIN (>60); Hemoglobin 11.4 g/dL (12.2-16.2)
[2025-03-31 07:46] LABS: Anion Gap 4.9 mEq/L (5-15); Calcium 8.7 mg/dl (8.4-10.2); Carbon Dioxide 27 mmol/L (22.0-30.0); Glucose 77 mg/dl (74-100)
[2025-03-31 08:00] VITALS: BP 143/77; PULSE 77; RESP 16; TEMP 36.7; O2SAT 95
--- NOTE | 2025-03-31 08:03 | XR_ITS ---
PROCEDURE INFORMATION: Exam: XR Complete Acute Abdomen Series Including Chest Exam date and time: 03/31/2025 9:08 AM Age: 79 years old Clinical indication: Screening exam; Other: Sbo vs ileus TECHNIQUE: Imaging protocol: Radiologic exam. Complete acute abdomen series, including 2 or more views of the abdomen and a single view chest. COMPARISON: CR XR KUB 03/30/2025 2:27 PM FINDINGS: Tubes, catheters and devices: The gastric side hole is at the level of the diaphragm. The enteric tube needs to be advanced 5 cm. Lungs: Normal. No consolidation. Pleural spaces: Normal. No pleural effusions. No pneumothorax. Heart/Mediastinum: Normal. No cardiomegaly. Gastrointestinal tract: No dilated bowel. Constipation throughout the colon Intraperitoneal space: Normal. No free air. Bones/joints: Severe degenerative changes in the glenohumeral joints Soft tissues: Normal. IMPRESSION: 1. The gastric side hole is at the level of the diaphragm. The enteric tube needs to be advanced 5 cm. 2. No dilated bowel.
--- NOTE | 2025-03-31 09:06 | P.CONS_ITS ---
History of Present Illness *Admission Date: 03/30/25 *Reason for visit:: Small bowel obstruction versus ileus *History of present illness: This is an 79-year-old female seen in consultation for evaluation regarding possible small bowel obstruction versus ileus. She presented to the emergency department with increasing abdominal pain. A CT scan revealed fluid-filled loops of small bowel with some surrounding inflammatory changes. Possible ileal wall thickening consistent with likely enteritis also noted. She has continued to pass flatus. She states that her last bowel movement was just before coming to the hospital . Currently, she states that her pain has resolved. She passed gas about an hour ago . She is adamant that if she do(es) need surgery (she) need(s) to go to (her) surgeon at [facility] in [place] . Forwarded from admission H&P: Patient is a 78-year-old female with past medical history of hypertension, colonic polyps who presents to the hospital for abdominal pain and constipation. According to the patient she is not having bowel movements for the past 2 days and not passing gas. She has abdominal pain throughout her abdomen. Patient called her GI office at [facility] and was informed to come to the emergency department for further evaluation. Patient otherwise denied fever chills chest pain. On further evaluation patient was found to have small bowel obstruction. [facility] Disclaimer: The information contained in this section may have been updated after the patient was seen, as this information can be updated by other users. Medical History (Updated 03/31/25 @ 09:15 by Shukri Noyola MD) HTN (hypertension) Jbnwt-Vxgjmyubf-Wkawd (WPW) syndrome Family History (Updated 03/30/25 @ 15:09 by Shannon Albert RN) Family history of cancer Social History (Updated 03/30/25 @ 15:12 by Shannon Albert RN) Smoking Status: Never smoker alcohol intake: never substance use type: denies use current occupational status: retired Travel in the last 8 weeks?: None Have you lived/traveled outside US in past 30 days?: No Contact w/someone who lives/traveled outside US past 30 days?: No Exposure to someone with infectious disease in past 14 days?: No Do you have a fever (greater than 100.4 F or 38 C)?: No Have you tested positive for COVID-19?: No Exposed to someone with COVID-19 in past 14 days?: No Do you have a sore throat?: No Do you have a cough?: No Do you have any weakness?: No Are you experiencing any nausea/vomitting?: Yes Do you have any diarrhea?: No Are you experiencing any unusual bleeding?: No Do you have any muscle aches/pain?: No Do you have any abdominal pain?: No Are you experiencing loss of taste or smell?: No Meds Home Medications and Allergies Home Medications ?Medication ?Instructions ?Recorded ?Confirmed ?Type fish oil 400 mg-flaxseed 400 1 cap PO DAILY 06/05/18 0 03/31/25 History mg-prim,blk algorithm developer,borag oils 200 mg capsule (Fish, Flax and Borage Oil ([place])) glucosamine sulfate 500 mg capsule 500 mg PO BID 06/0503/31/25 History grape seed extract 50 mg capsule 150 mg PO DAILY 06/0503/31/25 History olive leaf extract 250 mg capsule 250 mg PO DAILY 04/1503/31/25 History omega-3 fatty acids 1,000 mg 1,000 mg PO DAILY 8 03/31/25 History capsule vitamin [id number] B1 1,000 1 ml IM MONTHLY 06/05/18 03/31/25 History mcg-100 mg/mL injection solution enalapril maleate 5 mg tablet 5 mg PO DAILY 12/23/21 0 03/31/25 History New Prescriptions to Start Prescriptions: Allergies Allergy/AdvReac Type Severity Reaction Status Date / Time Iodinated Contrast Media Allergy Severe causes Verified 11/13/23 15:38 (Iodinated Contrast Media - blood Oral and) pressure to drop acetaminophen (From Lortab) Allergy Intermediate Verified 11/13/23 15:38 amoxicillin Allergy Intermediate vaginitis Verified 11/13/23 15:38 atropine (From Lomotil) Allergy Intermediate Verified 11/13/23 15:38 dabigatran etexilate (From Allergy Intermediate Verified 11/13/23 15:38 Pradaxa) digoxin (From Lanoxin) Allergy Intermediate pt. said Verified 11/13/23 15:38 it made her hands swell and unusual heart rate diphenoxylate (From Lomotil) Allergy Intermediate Verified 11/13/23 15:38 hydrocodone (From Lortab) Allergy Intermediate Verified 11/13/23 15:38 iodine Allergy Intermediate Verified 11/13/23 15:38 ketorolac (From Toradol) Allergy Intermediate Verified 11/13/23 15:38 pentazocine (From Talwin) Allergy Intermediate Verified 11/13/23 15:38 prednisone Allergy Intermediate Verified 11/13/23 15:38 thallium-201 Allergy Intermediate Verified 11/13/23 15:38 aspirin (From Magdy Aspirin) Allergy Mild hives,weakness,and Verified 11/13/23 15:38 stomach upset chlorothiazide (From Diuril) Allergy Mild Verified 11/13/23 15:38 codeine Allergy Mild Verified 11/13/23 15:38 cortisone Allergy Mild Verified 11/13/23 15:38 digitalin Allergy Mild Verified 11/13/23 15:38 mold Allergy Mild Verified 11/13/23 15:38 propoxyphene (From Darvon) Allergy Mild Verified 11/13/23 15:38 NSAIDS (Non-Steroidal Allergy itching,dizziness,rash, Verified 11/13/23 15:38 Anti-Inflamma and headache tetracycline AdvReac Intermediate vaginitis Verified 11/13/23 15:38 darvcette Allergy Mild Uncoded 01/15/20 09:26 Exam (Inpt) Vital signs and Labs for Last 24 Hours: Temp Pulse Resp BP Pulse Ox O2 Del Method 98.7 F 98 H 12 128/64 93 L Room Air 03/31/25 04:00 03/31/25 04:00 03/31/25 04:00 03/31/25 04:00 03/31/25 04:00 03/31/25 06:26 Laboratory Results - last 24 hr 03/30/25 10:16: WBC 13.8 H, RBC 4.75, Hgb 13.7, Hct 41.0, MCV 86.3, MCH 28.8, MCHC 33.4, RDW 13.5, Plt Count 237, MPV 10.3, Neut % (Auto) 87.5 H, Lymph % (Auto) 8.0 L, [place] % (Auto) 3.8, Eos % (Auto) 0.1, Baso % (Auto) 0.2, Neut # (Auto) 12.1 H, Lymph # (Auto) 1.1, [place] # (Auto) 0.5, Eos # (Auto) 0.0, Baso # (Auto) 0.0, Sodium 130 L, Potassium 4.1, Chloride 94 L, Carbon Dioxide 28, Anion Gap 12.1, BUN 15, Creatinine 0.60, Estimated Creat Clear 44, Estimated GFR 96, Est GFR ( Amer) 116, Glucose 126 H, Calcium 10.1, Total Bilirubin 0.4, AST 32, ALT 15, Alkaline Phosphatase 130 H, Total Protein 8.5 H, Albumin 4.2, G lobulin 4.3 H, Albumin/Globulin Ratio 1.0 L, Lipase 89, HCV Ab ISABELA w/Rflx PCR Qn Negative, HIV Ag/Ab Combo Qual Negative 03/30/25 10:34: Urine Color Yellow, Urine Appearance Clear, Urine pH 6.0, Ur Specific [place] 1.025, Urine Protein Trace, Urine Glucose (UA) Negative, Urine Ketones Negative, Urine Blood Negative, Urine Nitrate Negative, Urine Bilirubin Negative, Urine Urobilinogen 0.2, Ur Leukocyte Esterase Negative, Urine RBC Occasional, Urine WBC Occasional, Ur Squamous Epith Cells 3-5, Urine Bacteria Trace, Fine Granular Casts Occasional 03/30/25 11:00: VBG pH 7.40, VBG pCO2 41.3, VBG pO2 43.4 H, VBG HCO3 25.2, VBG Total CO2 26.5, VBG O2 Saturation 80.1 H, VBG Base Excess 0.5, VBG Lactic Acid 1.5 03/31/25 06:55: WBC 9.1 D, RBC 3.96 L, Hgb 11.4 L D, Hct 34.2 L, MCV 86.4, MCH 28.8, MCHC 33.3, RDW 13.8, Plt Count 198, MPV 10.8 H, Neut % (Auto) 65.5, Lymph % (Auto) 22.0, [place] % (Auto) 10.8 H, Eos % (Auto) 1.0, Baso % (Auto) 0.5, Neut # (Auto) 6.0, Lymph # (Auto) 2.0, [place] # (Auto) 1.0, Eos # (Auto) 0.1, Baso # (Auto) 0.1, Sodium 130 L, Potassium 3.9, Chloride 102, Carbon Dioxide 27, Anion Gap 4.9 L, BUN 15, Creatinine 0.80 D, Estimated Creat Clear 42, Estimated GFR 69, Est GFR ( Amer) 83 D, Glucose 77 D, Calcium 8.7 I & O for Labs for Last 24 Hours: Intake & Output 03/28/25 03/29/25 03/30/25 03/31/25 11:59 11:59 11:59 11:59 Intake Total 0 / 0 Output Total 1175 / 1175 Balance -1175 / -1175 Weight 140 lb 132 lb 3.2 oz Constitutional: no acute distress Respiratory: Absent respiratory distress GI: Present soft; Absent tenderness Results Labs 03/31/25 06:55 03/31/25 06:55 Labs: Laboratory Results - last 24 hr 03/30/25 10:16: WBC 13.8 H, RBC 4.75, Hgb 13.7, Hct 41.0, MCV 86.3, MCH 28.8, MCHC 33.4, RDW 13.5, Plt Count 237, MPV 10.3, Neut % (Auto) 87.5 H, Lymph % (Auto) 8.0 L, [place] % (Auto) 3.8, Eos % (Auto) 0.1, Baso % (Auto) 0.2, Neut # (Auto) 12.1 H, Lymph # (Auto) 1.1, [place] # (Auto) 0.5, Eos # (Auto) 0.0, Baso # (Auto) 0.0, Sodium 130 L, Potassium 4.1, Chloride 94 L, Carbon Dioxide 28, Anion Gap 12.1, BUN 15, Creatinine 0.60, Estimated Creat Clear 44, Estimated GFR 96, Est GFR ( Amer) 116, Glucose 126 H, Calcium 10.1, Total Bilirubin 0.4, AST 32, ALT 15, Alkaline Phosphatase 130 H, Total Protein 8.5 H, Albumin 4.2, G lobulin 4.3 H, Albumin/Globulin Ratio 1.0 L, Lipase 89, HCV Ab ISABELA w/Rflx PCR Qn Negative, HIV Ag/Ab Combo Qual Negative 03/30/25 10:34: Urine Color Yellow, Urine Appearance Clear, Urine pH 6.0, Ur Specific [place] 1.025, Urine Protein Trace, Urine Glucose (UA) Negative, Urine Ketones Negative, Urine Blood Negative, Urine Nitrate Negative, Urine Bilirubin Negative, Urine Urobilinogen 0.2, Ur Leukocyte Esterase Negative, Urine RBC Occasional, Urine WBC Occasional, Ur Squamous Epith Cells 3-5, Urine Bacteria Trace, Fine Granular Casts Occasional 03/30/25 11:00: VBG pH 7.40, VBG pCO2 41.3, VBG pO2 43.4 H, VBG HCO3 25.2, VBG Total CO2 26.5, VBG O2 Saturation 80.1 H, VBG Base Excess 0.5, VBG Lactic Acid 1.5 03/31/25 06:55: WBC 9.1 D, RBC 3.96 L, Hgb 11.4 L D, Hct 34.2 L, MCV 86.4, MCH 28.8, MCHC 33.3, RDW 13.8, Plt Count 198, MPV 10.8 H, Neut % (Auto) 65.5, Lymph % (Auto) 22.0, [place] % (Auto) 10.8 H, Eos % (Auto) 1.0, Baso % (Auto) 0.5, Neut # (Auto) 6.0, Lymph # (Auto) 2.0, [place] # (Auto) 1.0, Eos # (Auto) 0.1, Baso # (Auto) 0.1, Sodium 130 L, Potassium 3.9, Chloride 102, Carbon Dioxide 27, Anion Gap 4.9 L, BUN 15, Creatinine 0.80 D, Estimated Creat Clear 42, Estimated GFR 69, Est GFR ( Amer) 83 D, Glucose 77 D, Calcium 8.7 Assessment and Plan *Assessment and plan (1) Bowel obstruction: Status: Acute Qualifiers: Intestinal obstruction type: paralytic ileus Qualified Code(s): K56.0 - Paralytic ileus Category: Medical Code(s): K56.609 - Unspecified intestinal obstruction, unspecified as to partial versus complete obstruction Plan: The patient has no definitive evidence radiographically or symptomatically of mechanical obstruction. She most likely has enteritis-associated ileus. Continue overall management as per primary service Flat/upright films ordered Place nasogastric tube to drain bag (possibly remove later today) As per the patient's wishes, plans to [facility] if significant symptoms recur (or if any other evidence that she will likely need surgical intervention develops)
--- NOTE | 2025-03-31 09:21 | HMH.PHAINT1 ---
Pharmacy Intervention Comments: MEDICATION RECONCILIATION COMPLETE USING EXTERNAL PHARMACY FILL HISTORY.
[2025-03-31] MEDS: HEPARIN SODIUM 5,000 UNIT/ML VIAL 5000 UNIT SUBCUT ×2 (09:38→20:15)
--- NOTE | 2025-03-31 09:38 | PC.NURSE ---
verbal order from Dr. Noyola to put NG to drainage bad & check residuals q4
--- NOTE | 2025-03-31 10:28 | PC.NURSE ---
[facility] contacted this RN regarding NG tube placement. advanced 4cm. NG to Ines arreola @ 64CM. pt tolerated well.
[2025-03-31] MEDS: 0.9 % SODIUM CHLORIDE 1000ML 1,000 ML 50 ML IV (12:29)
--- NOTE | 2025-03-31 13:18 | PC.NURSE ---
30ml residual in pt NG tube @ 1300
[2025-03-31] MEDS: PHENOL THROAT SPRAY 177 ML BOTTLE MM ×2 (14:17→20:15)
[2025-03-31 16:00] VITALS: BP 146/85; PULSE 82; RESP 16; TEMP 36.5; O2SAT 97
--- NOTE | 2025-03-31 16:11 | P.PN_ITS ---
Subjective *Date: 03/31/25 *Time: 16:11 Interval history: Patient is having significant secretions from the NG tube this morning, otherwise denied chest pain shortness of breath. Patient complains of itching in her throat Exam Data for Last 24 hours Vital signs and Labs for Last 24 Hours: Temp Pulse Resp BP Pulse Ox O2 Del Method 98.0 F 77 16 143/77 H 95 Room Air 03/31/25 08:00 03/31/25 08:00 03/31/25 08:00 03/31/25 08:00 03/31/25 08:00 03/31/25 15:00 Laboratory Results - last 24 hr 03/31/25 06:55: WBC 9.1 D, RBC 3.96 L, Hgb 11.4 L D, Hct 34.2 L, MCV 86.4, MCH 28.8, MCHC 33.3, RDW 13.8, Plt Count 198, MPV 10.8 H, Neut % (Auto) 65.5, Lymph % (Auto) 22.0, [place] % (Auto) 10.8 H, Eos % (Auto) 1.0, Baso % (Auto) 0.5, Neut # (Auto) 6.0, Lymph # (Auto) 2.0, [place] # (Auto) 1.0, Eos # (Auto) 0.1, Baso # (Auto) 0.1, Sodium 130 L, Potassium 3.9, Chloride 102, Carbon Dioxide 27, Anion Gap 4.9 L, BUN 15, Creatinine 0.80 D, Estimated Creat Clear 42, Estimated GFR 69, Est GFR ( Amer) 83 D, Glucose 77 D, Calcium 8.7 I & O for Last 24 hours: Intake & Output 03/28/25 03/29/25 03/30/25 03/31/25 23:59 23:59 23:59 23:59 Intake Total 50 / 50 Output Total 1025 / 1175 150 / 150 Balance -1025 / -1175 -100 / -100 Weight 57.833 kg 59.965 kg Constitutional Constitutional: no acute distress *Routine HEENT Exam Head: Present normocephalic Eye: Present EOMI and PERRL ENT: Present mucous membranes moist *Routine Neck Exam Neck: Present supple; Absent lymphadenopathy *Routine Respiratory Exam Respiratory: Present CTA bilaterally *Routine Cardiovascular Exam Cardiovascular: Present RRR *Routine Abdominal Exam Abdominal: Present soft, tenderness and distended *Routine Extremities Exam Extremities: Absent cyanosis, clubbing or edema *Routine Skin Exam Skin: Present warm; Absent rash *Routine Neurological Exam Neurological: Present alert and oriented X3 Assessment and Plan *Assessment and plan (1) Bowel obstruction: Status: Acute Qualifiers: Intestinal obstruction type: paralytic ileus Qualified Code(s): K56.0 - Paralytic ileus Category: Medical Code(s): K56.609 - Unspecified intestinal obstruction, unspecified as to partial versus complete obstruction (2) Fall: Status: Acute Category: Medical Code(s): W19.XXXA - Unspecified fall, initial encounter (3) HTN (hypertension): Status: Acute Category: Medical Code(s): I10 - Essential (primary) hypertension Plan Patient is a 78-year-old female with past medical history of hypertension, colonic polyps who presents to the hospital for abdominal pain and constipation. According to the patient she is not having bowel movements for the past 2 days and not passing gas. She has abdominal pain throughout her abdomen. Patient called her GI office at [facility] and was informed to come to the emergency department for further evaluation. Patient otherwise denied fever chills chest pain. On further evaluation patient was found to have small bowel obstruction. Assessment and plan Abdominal pain likely secondary to small bowel obstruction Enteritis CT abdomen pelvis performed in the ED did show multiple loops of fluid-filled small bowel, suspected ileus or small bowel obstruction N.p.o. for now Continue IV fluids Consult general surgery-recommends to continue NG tube for now According to the patient if in case she needs surgery she would like to be transferred to [facility] Pain control Monitor and replace electrolytes Start IV Zosyn Leukocytosis suspect due to reactive or enteritis Continue Zosyn Monitor Chronic medical conditions Zwvup-Qtroqieuy-Qbpxq syndrome Hypertension Resume home medications when able to take p.o. DVT prophylaxis-subcutaneous heparin According to the patient if in case she needs surgery she would like to be transferred to [facility]
--- NOTE | 2025-03-31 17:57 | PC.NURSE ---
60ml residual in pt NG @ 1700
--- NOTE | 2025-03-31 18:03 | PC.NURSE ---
pt a&ox4. resting supine in bed. tolerating RA with sats >90%. NG tube to rt nare hooked to drain bag. residuals checked q4 this shift. tube is resistive to drawback at times. pt complained of throat pain and has been given phenol spray with verbalization of relief. no current needs. call light within reach.
[2025-03-31 19:51] VITALS: BP 151/97; PULSE 86; RESP 18; TEMP 36.6; O2SAT 96
--- OUTSIDE RECORDS SUMMARY | 2025-03-31 21:20 | XMS_ITS | Clinical Summary ---
Author Organization Healthcare Address [address] [place] [address] Care Team Providers Care Bridge Painter Helper Name Role Phone Olgacoleajit Darrin Candido DOUGLAS [...] 2 (two) times a day. 09/02/2015 Active [place] Extract 150 MG capsule 09/02/2015 Active [place] 3-6-9 Fatty Acids (OMEGA 3-6-9 COMPLEX PO) Take by mouth 2 (two) times a day. 09/02/2015 Active Multiple Minerals-Vitami ns (BONE ESSENTIALS PO) 12/08/2020 Acti ve [place] Extract 150 MG capsule TAKE 1 CAPSULE TDD:tid 09/02/2015 Active [place] 3-6-9 Fatty Acids (OMEGA 3-6-9 COMPLEX PO) [...] Description 05/07/2025 1:00 PM EDT Office Visit [facility] [address] [place] [address] Júnior Lantigua MD [address] [place] [address] Health Maintenance Due Date Last [...] or (1 - 1-dose 75+ series) 2018 [id number] Vaccine ( season) 2024 07/29/2021, 10/08/2020, 09/10/2020 [...] patient's age to complete this topic Insurance [facility] MEDICARE Care Teams Bridge Painter Helper Relationship Specialty Start Date End Date Darrin Liang DO [address] [place] [address] PCP - General 01/09/21
--- OUTSIDE RECORDS SUMMARY | 2025-03-31 21:20 | XMS_ITS | Clinical Summary ---
[facility] Address [address] [place] [address] Care Team Providers Care Malt Loader Name Role Phone Darrin Liang DO Primary [...] fall-prevention measurements. The National Osteoporosis Foundation recommends (http://www.nof.org/hcp/practice/cqxiqwrm-jkf-cttxsvoa-guidelines/clinic ians-guide) that FDA-approved medical therapies be considered [...] the lumbar spine with 95% confidence is 0.110860 gm/cm2 and and 0.754045 g/cm2 at the left hip. Reading Radiologist- JOAN JENNINGS Releasing Radiologist- JOAN JENNINGS Released Date Time- 05/14/14912 Electric Truck Operator- Lauren Darrin Liang DO G DXA ORDERABLES Fin al Result from Last 3 Months or Most Recently Relevant to Health Maintenance Insurance [address] [place] [id number] [facility] MEDICARE ADVANTAGE [facility] [employer] B[employer]AU Care Teams Malt Loader Relationship Specialty Start Date End Date Darrin Liang DO [address] [place] [address] PCP - General 07/21/15
--- OUTSIDE RECORDS SUMMARY | 2025-03-31 21:20 | XMS_ITS | Clinical Summary ---
Author Organization [facility] Address [address] [place], [place] [address] Care Team Providers Care Assistant Spa Director Name Role Phone Darrin Liang MD Primary [...] enalapril (VASOTEC) 5 MG tablet 06/09/2022 Active [place] Extract 150 MG CAPS 09/02/2015 Active Ubiquinol 100 MG CAPS Take by mouth 2 (two) times daily. 09/02/2015 Active Grape Seed Extract 100 MG CAPS Take by mouth daily. 09/02/2015 Active Glucosamine-David droit-Vit C-Mn (GLUCOSAMINE 1500 COMPLEX) CAPS Take by mouth. Active [place] 3-6-9 Fatty Acids (OMEGA 3-6-9 COMPLEX) CAPS [...] (08/03/2022): Added automatically from request for surgery [id number] Immunizations Immunization Administration Dates Next Due COVID-19 [...] this topic Medical Devices Implanted Type Area Computerized Table Cutter Device Identifier Shelf Expiration Date Model / Serial / Lot Plate Post Va 4h Rt [id number] - [id number] Implanted:Qty: 1 on 08/09/2022 by Megan Rajan MD at [facility] Plates Right: [employer] [id number] / / Description:From vendor monroy Plate Medial [id number] - [id number] Implanted:Qty: 1 on 08/09/2022 by Megan Rajan MD at [facility] Plates Right: [employer] [id number] / / Screw Locking 2.7x18 [id number] - [id number] Implanted:Qty: 2 on 08/09/2022 by Megan Rajan MD at [facility] Screws, Bolts and Washers Right: Arm [employer] L T D [id number] / / Description:From vendor monroy Screw Ermias Stp 3.5x20 [id number] - [id number] Implanted:Qty: 2 on 08/09/2022 by Megan Rajan MD at [facility] Screws, Bolts and Washers Right: Arm [employer] L T D [id number] / / Description:From vendor monroy Screw Locking 2.7x22 [id number] - [id number] Implanted:Qty: 1 on 08/09/2022 by Megan Rajan MD at [facility] Screws, Bolts and Washers Right: Arm SYNTHES L T D [id number] / / Description:From vendor monroy Screw Locking 2.7x60 [id number] - [id number] Implanted:Qty: 1 on 08/09/2022 by Megan Rajan MD at [facility] Screws, Bolts and Washers Right: Arm SYNTHES [id number] / / Description:From vendor monroy Screw Locking 2.7x50 [id number] - [id number] Implanted:Qty: 1 on 08/09/2022 by Megan Rajan MD at [facility] Screws, Bolts and Washers Right: Arm SYNTHES [id number] / / Description:From vendor monroy Screw Locking 2.7x32 [id number] - [id number] Implanted:Qty: 1 on 08/09/2022 by Megan Rajan MD at [facility] Screws, Bolts and Washers Right: Arm SYNTHES [id number] / / Description:From vendor monroy Screw Locking 2.7x24 [id number] - [id number] Implanted:Qty: 1 on 08/09/2022 by Megan Rajan MD at [facility] Screws, Bolts and Washers Right: Arm SYNTHES L T D [id number] / / Description:From vendor monroy Screw Locking 2.7x20 [id number] - [id number] Implanted:Qty: 1 on 08/09/2022 by Megan Rajan MD at [facility] Screws, Bolts and Washers Right: Arm SYNTHES L T D [id number] / / Description:From vendor monroy Screw Locking 2.7x12 [id number] - [id number] Implanted:Qty: 1 on 08/09/2022 by Megan Rajan MD at [facility] Screws, Bolts and Washers Right: Arm [employer] L T D [id number] / / Description:From vendor monroy Screw Ermias Stp 3.5x22 [id number] - [id number] Implanted:Qty: 1 on 08/09/2022 by Megan Rajan MD at [facility] Screws, Bolts and Washers Right: Arm Pict D [id number] / / Description:From vendor monroy Explanted Type Area Computerized Table Cutter Device Identifier Shelf Expiration Date Model / Serial / Lot Screw Ermias Stp 3.5x20 [id number] - [id number] Explanted:Qty: 1 on 08/09/2022 by Megan Rajan MD at [facility] Screws, Bolts and Washers Right: Arm Pict D / / Description:From vendor monroy Screw Locking 2.7x22 [id number] - [id number] Explanted:Qty: 1 on 08/09/2022 by Megan Rajan MD at [facility] Screws, Bolts and Washers Right: Arm Pict D [id number] / / Description:From vendor monroy Screw Locking 2.7x16 [id number] - [id number] Explanted:Qty: 1 on 08/09/2022 at [facility] Screws, Bolts and Washers Right: Arm [employer] T D [id number] / / Description:From vendor monroy Wire K 1.6x150 36367 - [id number] Explanted:Qty: 1 on 08/09/2022 by Megan Rajan MD at [facility] Wires Right: Arm [employer]ables [id number] / / Description:Used as supply Insurance [employer] MEDICARE REPLACEMENT Advance Directives * Full Code (Latest Code Status on File) Date Activated Date Inactivated Comments 08/09/2022 7:27 PM 08/11/2022 3:01 PM Care Teams Assistant Spa Director Relationship Specialty Start Date End Date Darrin Liang MD [address] [facility] [address] [place] [address] PCP - General Internal Medicine 07/27/22
--- NOTE | 2025-03-31 22:36 | PC.NURSE ---
At approximately 21:00 this shift, the patient's gastric residual amount was measured (20 mL was the amount). Gastric contents were murky, odorless, and brown in color. Upon initial assessment, the patient denied having abdominal pain (including with palpation), nausea, or an urge to vomit. Abdomen soft/slightly puffy. Per Dr Noyola's communication order (for 03/31/25, 09:06), the patient's NG tube can be removed after 8 hours if residual is minimal (< 100 mL) and if no symptoms exist. At this time, the patient's NG tube (located to the right nare) was removed. Patient tolerated the removal of the NG tube very well; no coughing, distress, or significant drainage + bleeding from her nares observed. About 50 mL of gastric contents measured in the drainage bag. Patient stated that she is very happy to have her NG tube removed. She also stated that her throat discomfort has improved. Soft wipes were provided for nasal care. NG tube pieces were intact post-removal and discarded appropriately. Currently, she continues to deny having abdominal pain, nausea, or an urge to vomit. Bowel sounds very active upon auscultation. Patient additionally remains NPO per MD orders. She verbalized an understanding to notify me if any abnormal symptoms arise during the night.
[2025-04-01] MEDS: PIPERACILLIN/TAZO 3.375 GM in 0.9 % SODIUM CHLORIDE 50 ML IV ×4 (00:58→19:58)
[2025-04-01 04:00] VITALS: BP 142/79; PULSE 85; RESP 18; TEMP 36.4; O2SAT 95; BMI 24.7
--- NOTE | 2025-04-01 04:00 | PC.NURSE ---
Patient is alert and oriented x4. She was observed to be resting in bed with eyes closed, respirations even and unlabored on room air, and no apparent distress throughout the majority of the night. Her NG tube was removed during this shift (see prior note). Thus far, the patient remains without any abdominal pain, nausea, and/or urges to vomit. She also continues to report passing gas. However, she has not had a bowel movement this shift. Bowel sounds remain active in all quadrants. No distention to abdomen noted. Patient remains NPO. Suction available at the bedside to remove pharynx drainage. Phenol throat spray provided as needed for throat discomfort. Voice hoarseness noted to improve after NG tube removal. Scheduled medications were administered as appropriately per MAR. Normal saline continues to infuse at 50 mL/hr. Patient ambulated independently with supervision in her room/to the bathroom without any difficulties. Vital signs stable; blood pressures slightly elevated, asymptomatic. At this time, the patient is resting in bed without any further complaints. No acute changes noted thus far. Call light within reach.
--- NOTE | 2025-04-01 06:22 | PC.NURSE ---
Dr Noyola consulted with the patient at the bedside. He stated that he is willing to allow the patient to have a clear liquid diet this morning.
--- NOTE | 2025-04-01 06:25 | EXP.SURG.PN ---
Subjective Patient reports: feels better and flatus Exam Data for Last 24 hours Vital signs and Labs for Last 24 Hours: Temp Pulse Resp BP Pulse Ox O2 Del Method 97.5 F L 85 18 142/79 H 95 Room Air 04/01/25 04:00 04/01/25 04:00 04/01/25 04:00 04/01/25 04:00 04/01/25 04:00 04/01/25 05:00 Laboratory Results - last 24 hr 03/31/25 06:55: WBC 9.1 D, RBC 3.96 L, Hgb 11.4 L D, Hct 34.2 L, MCV 86.4, MCH 28.8, MCHC 33.3, RDW 13.8, Plt Count 198, MPV 10.8 H, Neut % (Auto) 65.5, Lymph % (Auto) 22.0, [place] % (Auto) 10.8 H, Eos % (Auto) 1.0, Baso % (Auto) 0.5, Neut # (Auto) 6.0, Lymph # (Auto) 2.0, [place] # (Auto) 1.0, Eos # (Auto) 0.1, Baso # (Auto) 0.1, Sodium 130 L, Potassium 3.9, Chloride 102, Carbon Dioxide 27, Anion Gap 4.9 L, BUN 15, Creatinine 0.80 D, Estimated Creat Clear 42, Estimated GFR 69, Est GFR ( Amer) 83 D, Glucose 77 D, Calcium 8.7 I & O for Last 24 hours: Intake & Output 03/29/25 03/30/25 03/31/25 04/01/25 11:59 11:59 11:59 11:59 Intake Total 50 / 50 1560 / 1560 Output Total 1175 / 1175 670 / 670 Balance -1125 / -1125 890 / 890 Weight 140 lb 132 lb 3.2 oz 130 lb 12.8 oz Constitutional Constitutional: no acute distress *Routine Cardiovascular Exam Cardiovascular: Absent tachycardia *Routine Abdominal Exam Abdominal: Present soft Progress Note: A&P Assessment and plan (1) Bowel obstruction: Status: Acute Assessment and plan: Most likely enteritis-associated ileus. Patient is improving and continues to pass flatus. She has had no nausea or vomiting after removal of her nasogastric tube. Clear liquid diet ordered Slowly advance diet as tolerated
[2025-04-01 06:30] LABS: Hematocrit 33.2 % (37.0-47.0); Hemoglobin 10.7 g/dL (12.2-16.2); Immature Granulocytes % 0.4 %; Mean Corpuscular HGB Conc 32.2 g/dL (31.8-35.4); Mean Corpuscular Hemoglobin 28.3 pg (27.0-31.2); Mean Corpuscular Volume 87.8 fl (81-99); Nucleated Red Blood Cells % 0 %; Platelet Count 180 K/mm3 (142-424); Red Blood Count 3.78 M/mm3 (4.20-5.40); Red Cell Distribution Width-SD 44.7 fL; White Blood Count 7.8 K/mm3 (4.8-10.8)
[2025-04-01 06:56] LABS: Chloride 105 mmol/L (98-107); Sodium 134 mmol/L (136-145)
[2025-04-01 06:57] LABS: Potassium 3.6 mmoL/L (3.5-5.1)
[2025-04-01 06:59] LABS: Blood Urea Nitrogen 24 mg/dl (7-17); Creatinine Clearance Estimated 41 mL/min (50-200); Creatinine,Serum 0.60 mg/dl (0.52-1.04); Estimated Glomerular Filt Rate 96 ml/min (>60); GFR (African American) 116 ML/MIN (>60)
[2025-04-01 07:00] LABS: Calcium 8.8 mg/dl (8.4-10.2); Glucose 68 mg/dl (74-100)
[2025-04-01 07:53] VITALS: BP 136/83; PULSE 86; RESP 16; TEMP 36.4; O2SAT 97
[2025-04-01] MEDS: HEPARIN SODIUM 5,000 UNIT/ML VIAL 5000 UNIT SUBCUT ×2 (08:17→20:40)
--- NOTE | 2025-04-01 10:47 | P.PN_ITS ---
<Statement entered by Johnathon Cheng MD - 04/01/25 12:37> Rounded on patient after nurse practitioner. Personally examined and interviewed patient. Agree with exam findings and care plan as documented. Subjective *Date: 04/01/25 *Time: 11:30 Interval history: Patient lying in bed, NG tube removed this morning. Bowel sounds hyperactive. Patient able to tolerate clears for breakfast this morning. Denies nausea, vomiting, diarrhea, abdominal pain. Does states she had a small stool this morning, passing flatus. Medical Exam Vital signs and Labs for Last 24 Hours: Vital Signs Temp Pulse Pulse Resp BP Pulse Ox O2 Del Method 04/01/25 08:00 Room Air 04/01/25 07:53 97.6 F 86 16 136/83 97 Room Air 04/01/25 06:45 Room Air 04/01/25 05:00 Room Air 04/01/25 04:00 97.5 F L 85 18 142/79 H 95 Room Air 04/01/25 03:00 Room Air 04/01/25 01:00 Room Air 03/31/25 23:00 Room Air 03/31/25 21:00 Room Air 03/31/25 20:00 Room Air 03/31/25 19:51 97.8 F 86 18 151/97 H 96 Room Air 03/31/25 18:44 Room Air 03/31/25 17:00 Room Air 03/31/25 16:00 97.7 F 82 16 146/85 H 97 Room Air 03/31/25 15:00 Room Air 03/31/25 13:00 Room Air 03/31/25 11:00 Room Air Intake and Output 03/31/25 04/01/25 04/01/25 23:59 07:59 15:59 Intake Total 1300 / 1610 260 / 976 716 / 976 Output Total 420 / 570 250 / 450 200 / 450 Balance 880 / 1040 10 / 526 516 / 526 Intake: Intake, Oral Amount 0 / 716 716 / 716 Intake, Total IV Amount 1300 / 1350 0.9 % Sodium Chloride 1000ML 1, 1300 / 1300 000 ml @ 50 mls/hr IV .Q20H LAUREANO Rx#:[id number] Infusion Intake 260 / 260 0.9 % Sodium Chloride 1000ML 1, 260 / 260 000 ml @ 50 mls/hr IV .Q20H LAUREANO Rx#:[id number] Output: Output, Urine Amount 350 / 500 250 / 450 200 / 450 Output, Gastric Drainage Amount 70 / 70 Right Nare 70 / 70 Other: Number of Unmeasured Voids 1 0 Number of Bowel Movements 1 Weight 59.33 kg Patient Weight 04/01/25 23:59 Weight 59.33 kg Laboratory Results - last 24 hr 04/01/25 06:15: WBC 7.8, RBC 3.78 L, Hgb 10.7 L, Hct 33.2 L, MCV 87.8, MCH 28.3, MCHC 32.2, RDW 13.9, Plt Count 180, MPV 10.5 H, Neut % (Auto) 68.9, Lymph % (Auto) 19.7, Jerome % (Auto) 9.9 H, Eos % (Auto) 0.8, Baso % (Auto) 0.3, Neut # (Auto) 5.4, Lymph # (Auto) 1.5, [place] # (Auto) 0.8, Eos # (Auto) 0.1, Baso # (Auto) 0.0, Sodium 134 L, Potassium 3.6, Chloride 105, Carbon Dioxide 22, BUN 24 H D, Creatinine 0.60 D, Estimated Creat Clear 41, Estimated GFR 96, Est GFR ( Amer) 116 D, Glucose 68 L, Calcium 8.8 I & O for Labs for Last 24 Hours: Intake & Output 03/29/25 03/30/25 03/31/25 04/01/25 23:59 23:59 23:59 23:59 Intake Total 1350 / 1610 976 / 976 Output Total 1025 / 1175 570 / 570 450 / 450 Balance -1025 / -1175 780 / 1040 526 / 526 Weight 57.833 kg 59.965 kg 59.33 kg Constitutional: Present no acute distress and cooperative Head: Present atraumatic Eyes: Present as per HPI ENT: Present normal exam Neck: Present normal inspection; Absent tenderness Respiratory: Present CTA bilaterally, normal respiratory effort, able to speak in complete sentences and symmetric chest movement; Absent wheezes or crackles Cardiac: Present Reg Rate and Rhythm; Absent No Murmur GI: Present soft and hyperactive bowel sounds; Absent distention or tenderness Rectal (female): Present deferred (female): Present deferred Extremities: Present normal inspection; Absent edema Skin: Present intact and dry; Absent rash Neuro: Present alert, awake and oriented x 3 Assessment and Plan *Assessment and plan (1) Bowel obstruction: Status: Acute Qualifiers: Intestinal obstruction type: paralytic ileus Qualified Code(s): K56.0 - Paralytic ileus Category: Medical Code(s): K56.609 - Unspecified intestinal obstruction, unspecified as to partial versus complete obstruction (2) Abdominal pain: Status: Acute Category: Medical Code(s): R10.9 - Unspecified abdominal pain (3) Nausea and vomiting: Status: Acute Category: Medical Code(s): R11.2 - Nausea with vomiting, unspecified (4) Enteritis: Status: Acute Category: Medical Code(s): K52.9 - Noninfective gastroenteritis and colitis, unspecified (5) Acute hyponatremia: Status: Acute Category: Medical Code(s): E87.1 - Hypo-osmolality and hyponatremia (6) HTN (hypertension): Status: Acute Category: Medical Code(s): I10 - Essential (primary) hypertension Plan Ms. Awad is an 79-year-old female who presented to the emergency department with complaints of abdominal pain, vomiting, and inability to pass gas or have a bowel movement x1 day on 03/30/2025. She does have a primary medical history of hypertension, appendectomy, colonoscopy with polypectomy, and WPW syndrome. Workup was done in the emergency department which revealed small bowel with fluid-filled and some inflammatory changes to the fat surrounding the area, could be life assurance representative of a small bowel obstruction. There was also some bowel wall thickening in the ileum which may represent enteritis. Dr. Noyola with general surgery was consulted and recommendations of an NG tube placement given the vomiting, and admission for potential SBO versus ileus. Hospitalist agreed to admit for further management, general surgery was consulted. Plan of care is as follows: #Bowel obstruction, resolved #Abdominal pain, resolved #Nausea/vomiting, resolved #Enteritis ? Patient was admitted to the hospital for further management of a SBO/ileus. NG was placed and connected to drain bag. Serial KUBs obtained. ? She has done extremely well, denies nausea, vomiting, abdominal pain. Hyperactive bowel sounds. NG tube was removed this morning, she has tolerated a clear liquid diet without issues. She did have a small BM this morning. Plans to keep overnight for monitoring and advancing diet. ? Patient currently receiving IV fluids, will discontinue if patient able to tolerate clears for lunch. ? Continue Zosyn for enteritis, leukocytosis. Patient initial white count 13.8, resolved today 7.8. ? Continue to monitor CBC, CMP. Potassium within normal limits, 3.6. Creatinine 0.60. Hemoglobin stable at 10.7. #Hyponatremia ? Patient initially hyponatremic sodium 130, today 134. Will continue to monitor. #Hypertension ?Resume enalapril 5 mg daily. Full code VTE?heparin 5000 u twice daily Ambulate as tolerated Clear liquid diet
[2025-04-01 11:44] LABS: Anion Gap 10.6 mEq/L (5-15); Carbon Dioxide 22 mmol/L (22.0-30.0)
[2025-04-01] MEDS: 0.9 % SODIUM CHLORIDE 1000ML 1,000 ML 50 ML IV (13:00)
[2025-04-01 16:00] VITALS: BP 137/80; PULSE 72; RESP 16; O2SAT 99
--- NOTE | 2025-04-01 16:50 | PC.NURSE ---
patient is a/ox4 and remains on RA tolerating well. patient stated she feels much better this shift and is in good spirits. she is tolerating clear liquid diet and will advance diet for dinner per orders. she ambulates to the bathroom independently/stand by. no c/o abd discomfort or nausea/vomiting. NS at 50 mls/hr. continues to pas gas and had a small BM this AM. patient is currently sitting up in bed reading. call light within reach, no further requests at this time.
[2025-04-01 20:00] VITALS: BP 116/84; PULSE 71; RESP 16; TEMP 36.8; O2SAT 96
[2025-04-02] MEDS: PIPERACILLIN/TAZO 3.375 GM in 0.9 % SODIUM CHLORIDE 50 ML IV ×2 (01:58→07:57)
[2025-04-02] MEDS: 0.9 % SODIUM CHLORIDE 1000ML 1,000 ML 50 ML IV (03:28)
[2025-04-02 04:00] VITALS: BP 144/84; PULSE 67; RESP 16; TEMP 36.6; O2SAT 96; BMI 25.1
--- NOTE | 2025-04-02 06:16 | PC.NURSE ---
pt had moderate bowel movement. Pt was able to tolerated full liquids without issue. Pt stated she felt so much better. v/s, ox4, RA. possible d/c today. Plan of care ongoing.
[2025-04-02 06:31] LABS: Hematocrit 31.3 % (37.0-47.0); Hemoglobin 10.4 g/dL (12.2-16.2); Immature Granulocytes % 0.4 %; Mean Corpuscular HGB Conc 33.2 g/dL (31.8-35.4); Mean Corpuscular Hemoglobin 28.7 pg (27.0-31.2); Mean Corpuscular Volume 86.5 fl (81-99); Nucleated Red Blood Cells % 0 %; Platelet Count 170 K/mm3 (142-424); Red Blood Count 3.62 M/mm3 (4.20-5.40); Red Cell Distribution Width-SD 43.8 fL; White Blood Count 7.8 K/mm3 (4.8-10.8)
[2025-04-02 06:39] LABS: Chloride 104 mmol/L (98-107); Potassium 3.5 mmoL/L (3.5-5.1); Sodium 131 mmol/L (136-145)
[2025-04-02 06:42] LABS: Anion Gap 6.5 mEq/L (5-15); Blood Urea Nitrogen 10 mg/dl (7-17); Calcium 8.7 mg/dl (8.4-10.2); Carbon Dioxide 24 mmol/L (22.0-30.0); Creatinine Clearance Estimated 42 mL/min (50-200); Creatinine,Serum 0.60 mg/dl (0.52-1.04); Estimated Glomerular Filt Rate 96 ml/min (>60); GFR (African American) 116 ML/MIN (>60); Glucose 78 mg/dl (74-100)
[2025-04-02] MEDS: LISINOPRIL 5MG TABLET 5 MG PO (07:59)
[2025-04-02] MEDS: HEPARIN SODIUM 5,000 UNIT/ML VIAL 5000 UNIT SUBCUT (07:59)
[2025-04-02 08:00] VITALS: BP 142/98; PULSE 85; RESP 16; TEMP 36.5; O2SAT 98
--- NOTE | 2025-04-02 08:29 | P.DS_ITS ---
<Statement entered by Johnathon Cheng MD - 04/02/25 12:21> Rounded on patient after nurse practitioner. Personally examined and interviewed patient. Agree with exam findings and care plan as documented. General Admission date:: 03/30/25 Discharge date: 04/02/25 HPI HPI HPI: This is an 79-year-old female seen in consultation for evaluation regarding possible small bowel obstruction versus ileus. She presented to the emergency department with increasing abdominal pain. A CT scan revealed fluid-filled loops of small bowel with some surrounding inflammatory changes. Possible ileal wall thickening consistent with likely enteritis also noted. She has continued to pass flatus. She states that her last bowel movement was just before coming to the hospital . Currently, she states that her pain has resolved. She passed gas about an hour ago . She is adamant that if she do(es) need surgery (she) need(s) to go to (her) surgeon at [facility] in [place] . Forwarded from admission H&P: Patient is a 78-year-old female with past medical history of hypertension, colonic polyps who presents to the hospital for abdominal pain and constipation. According to the patient she is not having bowel movements for the past 2 days and not passing gas. She has abdominal pain throughout her abdomen. Patient called her GI office at [facility] and was informed to come to the emergency department for further evaluation. Patient otherwise denied fever chills chest pain. On further evaluation patient was found to have small bowel obstruction. Hospital Course Hospital Course Hospital Course: Ms. Awad is an 79-year-old female who presented to the emergency department with complaints of abdominal pain, vomiting, and inability to pass gas or have a bowel movement x1 day on 03/30/2025. She does have a primary medical history of hypertension, appendectomy, colonoscopy with polypectomy, and WPW syndrome. Workup was done in the emergency department which revealed small bowel with fluid-filled and some inflammatory changes to the fat surrounding the area, could be sales service representative of a small bowel obstruction. There was also some bowel wall thickening in the ileum which may represent enteritis. Dr. Noyola with general surgery was consulted and recommendations of an NG tube placement given the vomiting, and admission for potential SBO versus ileus. Hospitalist agreed to admit for further management, general surgery was consulted. Plan of care was as follows: #Bowel obstruction, resolved #Abdominal pain, resolved #Nausea/vomiting, resolved #Enteritis ? Patient was admitted to the hospital for further management of a SBO/ileus. NG was placed and connected to drain bag. Serial KUBs obtained. ? She has done extremely well, denies nausea, vomiting, abdominal pain. Normoactive bowel sounds. NG tube was removed yesterday morning, she was advanced to clear liquid diet and had no issues, currently on full liquid diet and tolerating without issue. She has had multiple bowel movements and is passing flatus. Continues to deny abdominal pain, nausea, vomiting. ? Patient received Zosyn every 6 hours IV during admission. No indication to continue at discharge. ? No leukocytosis noted during admission, 7.8-day of discharge. Hemoglobin stable at 10.4. ? Per general surgery she is good to be discharged and can follow-up with [facility] if problems arise. She states she currently sees [facility] for GI issues. #Hyponatremia ? Patient continues to be mildly hyponatremic sodium 131. Patient did receive IV fluids during admission. Should follow-up with PCP for repeat BMP in the next 1 to 2 weeks. #Hypertension ? Continue enalapril 5 mg daily at discharge. Total time spent on discharge 32 minutes in counseling, documentation, chart review, and direct care with patient. Exam Data for Last 24 hours Vital signs and Labs for Last 24 Hours: Temp Pulse Resp BP Pulse Ox O2 Del Method 97.7 F 85 16 142/98 H 98 Room Air 04/02/25 08:00 04/02/25 08:00 04/02/25 08:00 04/02/25 08:00 04/02/25 08:00 04/02/25 08:00 Laboratory Results - last 24 hr 04/01/25 06:15: Carbon Dioxide 22, Anion Gap 10.6 04/02/25 06:05: WBC 7.8, RBC 3.62 L, Hgb 10.4 L, Hct 31.3 L, MCV 86.5, MCH 28.7, MCHC 33.2, RDW 13.8, Plt Count 170, MPV 10.7 H, Neut % (Auto) 54.7, Lymph % (Auto) 31.9, [place] % (Auto) 10.0 H, Eos % (Auto) 2.4, Baso % (Auto) 0.6, Neut # (Auto) 4.3, Lymph # (Auto) 2.5, [place] # (Auto) 0.8, Eos # (Auto) 0.2, Baso # (Auto) 0.1, Sodium 131 L, Potassium 3.5, Chloride 104, Carbon Dioxide 24, Anion Gap 6.5, BUN 10 D, Creatinine 0.60, Estimated Creat Clear 42, Estimated GFR 96, Est GFR ( Amer) 116, Glucose 78, Calcium 8.7 I & O for Last 24 hours: Intake & Output 03/30/25 03/31/25 04/01/25 04/02/25 23:59 23:59 23:59 23:59 Intake Total 1350 / 1610 3506 / 3626 120 / 120 Output Total 1025 / 1175 570 / 570 850 / 1050 1050 / 1050 Balance -1025 / -1175 780 / 1040 2656 / 2576 -930 / -930 Weight 57.833 kg 59.965 kg 59.33 kg 60.413 kg Constitutional Constitutional: no acute distress and cooperative *Routine HEENT Exam Head: Present normocephalic Eye: Present EOMI ENT: Present mucous membranes moist *Routine Neck Exam Neck: Present supple and full ROM; Absent JVD *Routine Respiratory Exam Respiratory: Present CTA bilaterally, able to speak in complete sentences and symmetric chest movement; Absent wheezes or crackles *Routine Cardiovascular Exam Cardiovascular: Present RRR; Absent murmur *Routine Abdominal Exam Abdominal: Present soft and normoactive bowel sounds; Absent tenderness or distended *Routine Extremities Exam Extremities: Present full ROM; Absent edema *Routine Skin Exam Skin: Present intact and dry; Absent rash *Routine Neurological Exam Neurological: Present alert, oriented X3, vision grossly intact and hearing grossly intact Results Data Completed and Pending Labs on day of discharge: Labs from last 24 hours 04/02/25 04/01/25 06:05 06:15 WBC 7.8 RBC 3.62 L Hgb 10.4 L Hct 31.3 L MCV 86.5 MCH 28.7 MCHC 33.2 RDW 13.8 Plt Count 170 MPV 10.7 H Neut % (Auto) 54.7 Lymph % (Auto) 31.9 [place] % (Auto) 10.0 H Eos % (Auto) 2.4 Baso % (Auto) 0.6 Neut # (Auto) 4.3 Lymph # (Auto) 2.5 [place] # (Auto) 0.8 Eos # (Auto) 0.2 Baso # (Auto) 0.1 Sodium 131 L Potassium 3.5 Chloride 104 Carbon Dioxide 24 22 Anion Gap 6.5 10.6 BUN 10 D Creatinine 0.60 Estimated Creat Clear 42 Estimated GFR 96 Est GFR ( Amer) 116 Glucose 78 Calcium 8.7 DS: Diagnosis Discharge Diagnosis (1) Bowel obstruction: Status: Acute Code(s): K56.609 - Unspecified intestinal obstruction, unspecified as to partial versus complete obstruction Qualifiers: Intestinal obstruction type: paralytic ileus Qualified Code(s): K56.0 - Paralytic ileus (2) Abdominal pain: Status: Acute Code(s): R10.9 - Unspecified abdominal pain (3) Nausea and vomiting: Status: Acute Code(s): R11.2 - Nausea with vomiting, unspecified (4) Enteritis: Status: Acute Code(s): K52.9 - Noninfective gastroenteritis and colitis, unspecified (5) Acute hyponatremia: Status: Acute Code(s): E87.1 - Hypo-osmolality and hyponatremia (6) HTN (hypertension): Status: Acute Code(s): I10 - Essential (primary) hypertension Meds Home Medications and Allergies Home Medications ?Medication ?Instructions ?Recorded ?Confirmed ?Type fish oil 400 mg-flaxseed 400 1 cap PO DAILY 06/05/18 0 03/31/25 History mg-prim,blk scientist/engineer,borag oils 200 mg capsule (Fish, Flax and Borage Oil ([place])) glucosamine sulfate 500 mg capsule 500 mg PO BID 06/0503/31/25 History grape seed extract 50 mg capsule 150 mg PO DAILY 06/0503/31/25 History olive leaf extract 250 mg capsule 250 mg PO DAILY 04/1503/31/25 History omega-3 fatty acids 1,000 mg 1,000 mg PO DAILY 8 03/31/25 History capsule vitamin [id number] B1 1,000 1 ml IM MONTHLY 06/05/18 03/31/25 History mcg-100 mg/mL injection solution enalapril maleate 5 mg tablet 5 mg PO DAILY 12/23/21 0 03/31/25 History New Prescriptions to Start Prescriptions: Allergies Allergy/AdvReac Type Severity Reaction Status Date / Time Iodinated Contrast Media Allergy Severe causes Verified 11/13/23 15:38 (Iodinated Contrast Media - blood Oral and) pressure to drop acetaminophen (From Lortab) Allergy Intermediate Unknown Verified 04/01/25 11:55 allergy reaction amoxicillin Allergy Intermediate vaginitis Verified 11/13/23 15:38 atropine (From Lomotil) Allergy Intermediate Unknown Verified 04/01/25 11:55 allergy reaction dabigatran etexilate (From Allergy Intermediate Unknown Verified 04/01/25 11:55 Pradaxa) allergy reaction digoxin (From Lanoxin) Allergy Intermediate pt. said Verified 11/13/23 15:38 it made her hands swell and unusual heart rate diphenoxylate (From Lomotil) Allergy Intermediate Unknown Verified 04/01/25 11:55 allergy reaction hydrocodone (From Lortab) Allergy Intermediate Unknown Verified 04/01/25 11:55 allergy reaction iodine Allergy Intermediate Unknown Verified 04/01/25 11:55 allergy reaction ketorolac (From Toradol) Allergy Intermediate Unknown Verified 04/01/25 11:55 allergy reaction pentazocine (From Talwin) Allergy Intermediate Unknown Verified 04/01/25 11:55 allergy reaction prednisone Allergy Intermediate Unknown Verified 04/01/25 11:55 allergy reaction thallium-201 Allergy Intermediate Unknown Verified 04/01/25 11:55 allergy reaction aspirin (From Magdy Aspirin) Allergy Mild hives,weakness,and Verified 11/13/23 15:38 stomach upset chlorothiazide (From Diuril) Allergy Mild Unknown Verified 04/01/25 11:55 allergy reaction codeine Allergy Mild Unknown Verified 04/01/25 11:55 allergy reaction cortisone Allergy Mild Unknown Verified 04/01/25 11:55 allergy reaction digitalin Allergy Mild Unknown Verified 04/01/25 11:55 allergy reaction mold Allergy Mild Unknown Verified 04/01/25 11:55 allergy reaction propoxyphene (From Darvon) Allergy Mild Unknown Verified 04/01/25 11:55 allergy reaction NSAIDS (Non-Steroidal Allergy itching,dizziness,rash, Verified 11/13/23 15:38 Anti-Inflamma and headache tetracycline AdvReac Intermediate vaginitis Verified 11/13/23 15:38 Discharge Plan Disposition Patient Disposition: Home, Self-Care Condition: Good Discharge Order Discharge Orders: Discharge Order (Routine); Ordered 04/02/25 Ordered By: Chantel Grace Follow up Plan Follow up with: Darrin Liang [Primary Care Provider, Medical] - Enter time for follow up Referral Note: Please call office for follow up appointment Prescriptions/Medication Reconciliation: Continued olive leaf extract 250 mg capsule 250 mg PO DAILY glucosamine sulfate 500 mg capsule 500 mg PO BID grape seed extract 50 mg capsule 150 mg PO DAILY omega-3 fatty acids 1,000 mg capsule 1,000 mg PO DAILY Fish, Flax andBorage Oil(Prim) 400-400-200 mg capsule 1 cap PO DAILY vitamin C25-rjguobo B1 1,000-100 mg/mL solution 1 ml IM MONTHLY enalapril maleate 5 mg tablet 5 mg PO DAILY Problem Reconciliation Problems Reviewed?: Yes Patient Discharge Instructions ACTIVITY: Continue current activity DIET: advance to your usual diet Patient Instructions: DI for Small Bowel Obstruction Print Language: Canadian Providers Primary Care Provider: Darrin Liang Admit Provider: Homero Betts Attending Provider: Homero Betts
--- NOTE | 2025-04-02 08:34 | P.PN_ITS ---
Subjective *Date: 04/02/25 *Time: 08:34 Medical Exam Vital signs and Labs for Last 24 Hours: Vital Signs Temp Pulse Resp BP Pulse Ox O2 Del Method 04/02/25 08:00 97.7 F 85 16 142/98 H 98 Room Air 04/02/25 06:16 Room Air 04/02/25 05:00 Room Air 04/02/25 04:00 97.8 F 67 16 144/84 H 96 Room Air 04/02/25 03:00 Room Air 04/02/25 01:00 Room Air 04/01/25 23:00 Room Air 04/01/25 21:00 Room Air 04/01/25 20:00 Room Air 04/01/25 20:00 98.3 F 71 16 116/84 96 Room Air 04/01/25 19:00 Room Air 04/01/25 16:50 Room Air 04/01/25 16:00 72 16 137/80 99 Room Air 04/01/25 15:00 Room Air 04/01/25 13:00 Room Air 04/01/25 11:00 Room Air 04/01/25 09:00 Room Air Intake and Output 04/01/25 04/02/25 04/02/25 23:59 07:59 15:59 Intake Total 1530 / 3626 120 / 120 Output Total 200 / 1050 1050 / 1050 Balance 1330 / 2576 -930 / -930 Intake: Intake, Oral Amount 780 / 2616 120 / 120 Intake, Total IV Amount 750 / 750 0.9 % Sodium Chloride 1000ML 1, 750 / 750 000 ml @ 50 mls/hr IV .Q20H [facility] Rx#:[id number] Output: Output, Urine Amount 200 / 1050 1050 / 1050 Other: Number of Unmeasured Voids 1 Weight 60.413 kg Patient Weight 04/02/25 23:59 Weight 60.413 kg Laboratory Results - last 24 hr 04/01/25 06:15: Carbon Dioxide 22, Anion Gap 10.6 04/02/25 06:05: WBC 7.8, RBC 3.62 L, Hgb 10.4 L, Hct 31.3 L, MCV 86.5, MCH 28.7, MCHC 33.2, RDW 13.8, Plt Count 170, MPV 10.7 H, Neut % (Auto) 54.7, Lymph % (Auto) 31.9, [place] % (Auto) 10.0 H, Eos % (Auto) 2.4, Baso % (Auto) 0.6, Neut # (Auto) 4.3, Lymph # (Auto) 2.5, [place] # (Auto) 0.8, Eos # (Auto) 0.2, Baso # (Auto) 0.1, Sodium 131 L, Potassium 3.5, Chloride 104, Carbon Dioxide 24, Anion Gap 6.5, BUN 10 D, Creatinine 0.60, Estimated Creat Clear 42, Estimated GFR 96, Est GFR ( Amer) 116, Glucose 78, Calcium 8.7 I & O for Labs for Last 24 Hours: Intake & Output 03/30/25 03/31/25 04/01/25 04/02/25 23:59 23:59 23:59 23:59 Intake Total 1350 / 1610 3506 / 3626 120 / 120 Output Total 1025 / 1175 570 / 570 850 / 1050 1050 / 1050 Balance -1025 / -1175 780 / 1040 2656 / 2576 -930 / -930 Weight 57.833 kg 59.965 kg 59.33 kg 60.413 kg The patient's infection will respond to the chosen ABx?: Yes Is the patient receiving the right drug, dose, and route?: Yes Could a more targeted ABx be ordered?: No
--- NOTE | 2025-04-03 10:10 | SW/DCPLANNER ---
Spoke with patient on the phone. Patient stated that she is doing good. Patient stated that she had very good treatment when she was here. Patient stated that was not prescribed any new medicine. Patient stated that she does not have any concerns or questions at this time. Shantanu Acharya
== END 2025-04-02 12:39 | disposition home or self-care (01) | DRG 389 ==
LOC: ER 11:09 → 2ND 03-31 00:08
PROVIDERS: Admitting Provider Internal Medicine; Emergency Provider Student in an Organized Health Care Education/Training Program; PCP Internal Medicine; Visit Provider Internal Medicine
DX: K56.0 Paralytic ileus (principal); E87.1 Hypo-osmolality and hyponatremia; I10 Essential (primary) hypertension; I45.6 Pre-excitation syndrome; K52.9 Noninfective gastroenteritis and colitis, unspecified; Z90.49 Acquired absence of other specified parts of digestive tract; Z86.0100 Personal history of colon polyps, unspecified; Z79.899 Other long term (current) drug therapy; Z88.5 Allergy status to narcotic agent; Z88.8 Allergy status to other drugs, medicaments and biological substances; Z88.6 Allergy status to analgesic agent; Z88.1 Allergy status to other antibiotic agents; Z91.041 Radiographic dye allergy status
CPT/HCPCS: 36415; 74018; 74021; 74177; 80048; 80053; 81001; 82803; 83690; 85025; 86803; 87389; 93005; J1644; J2270; J2405; J2543; J7030; Q9967

== ENCOUNTER 2025-05-23 12:47 | Outpatient (CLI) | payer MEDICARE, SELFPAY ==
--- NOTE | 2025-05-23 12:50 | MM_ITS ---
PROCEDURE INFORMATION: Exam: MG Bilateral Diagnostic Breast Tomosynthesis Exam date and time: 05/23/2025 1:01 PM Age: 79 years old Clinical indication: Family history of breast cancer. TECHNIQUE: Imaging protocol: Bilateral Diagnostic tomosynthesis and 2D mammography including computer-aided detection (CAD) when performed. Unilateral or bilateral exam. COMPARISON: MG MM DIG MAMM BI DX W/CAD 05/04/2024 2:31 PM FINDINGS: MAMMOGRAPHY: Breast composition: The breasts are heterogeneously dense, which may obscure small masses. Breast mammogram findings: No stellate mass, architectural distortion, or suspicious microcalcifications to suggest malignancy. No skin thickening or axillary adenopathy. IMPRESSION: 1. No mammographic evidence of malignancy. 2. Annual bilateral mammographic screening is recommended unless otherwise clinically indicated. ASSESSMENT: BI-RADS Category 1: Negative.
== END 2025-05-23 23:59 | disposition home or self-care (01) ==
LOC: RAD 12:48
PROVIDERS: PCP Internal Medicine; Visit Provider Internal Medicine
DX: R92.333 Mammographic heterogeneous density, bilateral breasts (principal); Z80.3 Family history of malignant neoplasm of breast
CPT/HCPCS: 77062; 77066; G0279